=== PATIENT | female | born 1955 | race Caucasian/White ===

== ENCOUNTER 2019-06-07 16:10 | Inpatient (IN) | payer OTHER ==
--- NOTE | 2019-06-07 16:37 | ED ---
Respiratory - HPI Summary HPI Summary: Patient complains of dry cough 1 month, fever up 101 and shortness of breath with exertion 3 days. Diagnosed with pneumonia on 05/24, completed course of azithromycin with mild improvement in symptoms. Symptoms returned for past 5 days, worsening in past 3 days. Tested negative for Covid virus on 05/31. Patient has been isolated at home. Denies sore throat, ear pain, neck stiffness , headache, CP, and/V/D, abdominal pain, change in urine, change in BM. Medical history is asthma, HTN, HDL. Patient has been using her inhaler which makes her cough, so not providing relief. Nonsmoker. - History of Current Complaint Chief Complaint: EDShortnessOfBreath Stated Complaint: SOB/COUGH/ FEVER PER PT Time Seen by Provider: 06/07/19 16:13 Hx Obtained From: Patient Onset/Duration: Gradual Onset, Lasting Days Timing: Constant Current Severity: None Pain Intensity: 0 Character: Cough (Nonproductive), Dyspnea on Exertion Sputum Amount: None Aggravating Factor(s): Exertion Alleviating Factor(s): Nothing - Allergy/Home Medications Allergies/Adverse Reactions: Allergies Allergy/AdvReac Type Severity Reaction Status Date / Time No Known Allergies Allergy Verified 06/07/19 17:13 Home Medications: Home Medications Albuterol HFA INHALER* [Proair Hfa Inhaler*] 1 puff PO DAILY PRN 08/20/12 [ History Confirmed 06/07/19] Atorvastatin* [Lipitor 10 MG*] 10 mg PO DAILY 06/07/19 [History Confirmed ] Chlorthalidone TAB* [Hygroton TAB*] 12.5 mg PO DAILY 06/07/19 [History Confirmed 06/07/19] Enalapril(NF) [Enalapril (NF)] 20 mg PO DAILY 06/07/19 [History Confirmed ] Estradiol [Yuvafem] 10 mcg VG WEEKLY 06/07/19 [History Confirmed 06/07/19] Montelukast Sodium 10 mg PO DAILY 06/07/19 [History Confirmed 06/07/19] PMH/Surg Hx/FS Hx/Imm Hx Endocrine/Hematology History: Denies: Hx Anticoagulant Therapy Cardiovascular History: Denies: Hx Pacemaker/ICD Respiratory History: Denies: Hx Chronic Obstructive Pulmonary Disease (COPD) History: Denies: Hx Dialysis Sensory History: Denies: Hx Eye Prosthesis Opthamlomology History: Denies: Hx Legally Blind EENT History: Denies: Hx Deafness Neurological History: Denies: Hx Dementia - Cancer History Hx Chemotherapy: No Hx Radiation Therapy: No Infectious Disease History: No Infectious Disease History: Denies: Traveled Outside the [place] in Last 30 Days - Family History Known Family History: Positive: Non-Contributory - Social History Alcohol Use: Occasionally Hx Substance Use: No Hx Tobacco Use: No Review of Systems Positive: Fever Eyes: Negative Cardiovascular: Negative Positive: Shortness Of Breath, Cough Gastrointestinal: Negative Genitourinary: Negative Musculoskeletal: Negative Skin: Negative Neurological/Mental Status: Negative Psychological: Normal All Other Systems Reviewed And Are Negative: Yes Physical Exam Triage Information Reviewed: Yes Vital Signs On Initial Exam: Initial Vitals Temp Pulse Resp BP Pulse Ox 98.2 F 100 20 133/65 87 06/07/19 16:20 06/07/19 16:20 06/07/19 16:20 06/07/19 16:20 06/07/19 16:20 Vital Signs Reviewed: Yes Appearance: Positive: Well-Appearing Skin: Positive: Warm Head/Face: Positive: Normal Head/Face Inspection Eyes: Positive: Normal Neck: Positive: Supple Respiratory/Lung Sounds: Positive: Decreased Breath Sounds Cardiovascular: Positive: Normal Abdomen Description: Positive: Nontender Musculoskeletal: Positive: Normal Neurological: Positive: Normal Psychiatric: Positive: Normal AVPU Assessment: Alert - [place] Coma Scale Best Eye Response: 4 - Spontaneous Best Motor Response: 6 - Obeys Commands Best Verbal Response: 5 - Oriented Coma Scale Total: 15 Procedures - Sedation Patient Received Moderate/Deep Sedation with Procedure: No Diagnostics - Vital Signs Vital Signs Temp Pulse Resp BP Pulse Ox 06/07/19 16:20 98.2 F 100 20 133/65 87 - Laboratory Result Diagrams: 06/08/19 04:48 06/08/19 04:48 Lab Statement: Any lab studies that have been ordered have been reviewed, and results considered in the medical decision making process. Disposition - Course Course Of Treatment: Patient complains of dry cough 1 month, fever up 101 and shortness of breath with exertion 3 days. Diagnosed with pneumonia on 05/24, completed course of azithromycin with mild improvement in symptoms. Symptoms returned for past 5 days, worsening in past 3 days. Tested negative for Covid virus on 05/31. Patient has been isolated at home. Denies sore throat, ear pain , neck stiffness, headache, CP, and/V/D, abdominal pain, change in urine, change in BM. Medical history is asthma, HTN, HDL. Patient has been using her inhaler which makes her cough, so not providing relief. Nonsmoker. Patient 87 % O2 sat on room air. Mildly tachycardic. Placed on 3 L O2. Vital signs otherwise within normal limits. CBC 11.8. CRP 95. Labs otherwise within normal limits. Chest x-ray positive for worsening pneumonia. She drops to 88, 89% whenever taken off oxygen. EKG sinus rhythm, heart rate of 86, normal P axis. - Diagnoses Provider Diagnoses: Pneumonia, Hypoxia Discharge ED - Sign-Out/Discharge Documenting (check all that apply): Patient Departure - Discharge Plan Condition: Stable Disposition: ADMITTED TO [facility] - Billing Disposition and Condition Condition: STABLE Disposition: Admitted to [facility] - Attestation Statements Provider Attestation: I was available for consultation for this patient. I did not evaluate the patient or participate in any medical decision making or disposition decisions unless I am specifically named in the chart as having consulted on the patient. If I have consulted on the patient, please see my own ED note on the patient encounter. Alex Colón MD
[2019-06-07 17:26] LABS: ABS Eosinophils 0.2 10^3/ul (0-0.6); ABS Lymphocytes 0.9 10^3/ul (1.0-4.8); ABS Monocytes 1.1 10^3/ul (0-0.8); ABS Neutrophils 9.4 10^3/ul (1.5-7.7); Eosinophil % 1.9 %; Hematocrit 37 % (35-47); Hemoglobin 12.5 g/dL (12.0-16.0); Mean Corpuscular HGB Conc 34 g/dL (31-36); Mean Corpuscular Hemoglobin 29 pg (27-31); Mean Corpuscular Volume 85 fL (80-97); Mean Platelet Volume 7.7 fL (7.4-10.4); Platelet Count 382 10^3/uL (150-450); Red Blood Count 4.37 10^6 /uL (3.70-4.87); Red Cell Distribution Width 13 % (10-15); White Blood Count 11.8 10^3/uL (3.5-10.8)
[2019-06-07 17:42] LABS: Albumin 3.8 g/dL (3.2-5.2); Albumin/Globulin Ratio 1.1 (1-3); BUN/Creatinine Ratio 16.9 (8-20); C Reactive Protein 95.97 mg/L (<8.01); Calcium 9.3 mg/dL (8.6-10.3); EGFR African American 91.9 (>60); Globulin 3.4 g/dL (2-4); Potassium 3.6 mmol/L (3.5-5.0); Total Bilirubin 0.4 mg/dL (0.2-1.0); Total Protein 7.2 g/dL (6.4-8.9)
[2019-06-07] MEDS ORDERED: cefTRIAXone(*) 1 GM in NS 0.9% 50 ML* 50 ML IVPB ONE (17:42)
[2019-06-07 17:43] LABS: Troponin I 0.01 ng/mL (<0.03)
[2019-06-07] MEDS ORDERED: NS 0.9% 1000 ML** 1,000 ML IV ONE (17:45)
[2019-06-07 17:56] LABS: Influenza A Molecular Negative (Negative); Influenza B Molecular Negative (Negative)
--- OUTSIDE RECORDS SUMMARY | 2019-06-07 18:22 | XMS REPORT | Continuity of Care Document ---
:1955 External Reference #:[id number] Author Name [facility] (transmitted by agent of provider Boubacar Osorio) Address [address] [place] [address] Care Team Providers Name Role Phone Zee Esquivel MD - Internal Care Team Information Respiratory Therapy Director [phone] Medicine Lizzeth Conn MD - Internal Care Team Information Respiratory Therapy Director [phone] Medicine Problems Active Problems Provider Date Benign essential hypertension Lizzeth Conn M.D. Onset: 02/23/2010 Hyperlipidemia Lizzeth Conn M.D. Onset: 01/14/2011 Chondromalacia of patella Marlo Del Rio M.D. Onset: 01/17/2015 Social History Type Date Description Comments Sex Unknown Tobacco Use Start: Unknown Never Smoked Cigarettes ETOH Use Currently consumes alcohol 2/week Tobacco Use Start: Unknown Patient has never smoked Smoking Status Reviewed: 05/25/19 Patient has never smoked Exercise Type/Frequency Exercises regularly Allergies, Adverse Reactions, Alerts Active Allergies Reaction Severity Comments Date NKDA 11/21/2009 Seasonal 09/07/2013 Medications Active Medications SIG Qnty Indications Ordering Date Provider Azithromycin take 2 tabs day 1pwes Zhong 05/25/2019 1gm Packet one then 1 zoltan Ashraf M.D. daily until pack is gone Estradiol insert 1 tablet 24tabs Efrain Mathew, 11/21/2018 10mcg Tablets vaginally twice MD weekly Chlorthalidone Take 1/2 Tablet 90tabs Lizzeth 10/01/2017 25mg By Mouth Every Celine Conn Tablets Day Atorvastatin Calcium Take 1 Tablet By 90tabs E78.2 Lizzeth 04/04/2016 10mg Mouth Every Day Cotton, M.D. Tablets Montelukast Sodium Take 1 Tablet By 90tabs Lizzeth 12/22/2011 10mg Mouth Once Daily Cotton, M.D. Tablets Proair HFA inhale 1 to 2 3units Lizzeth 07/16/2009 108(90Base) puffs every 4 Cotton, M.D. mcg/Act Aerosol hours as needed Enalapril Maleate Take 1 Tablet By 90tabs Lizzeth 07/16/2009 20mg Mouth Daily Cotton, M.D. Tablets Medications Administered in Office Medication SIG Qnty Indications Ordering Provider Date Depomedrol 80MG Marlo Del Rio M.D. 09/05/2014 Injection Immunizations CPT Code Status Date Vaccine Lot # [id number] Given 01/03/2019 Influenza Virus Vaccine, Quadrivalent, Split, Preservative Free 41190 Given 12/06/2017 Fluzone High Dose 17499 Given 10/23/2016 Influenza Virus Vaccine, Quadrivalent, Split, Preservative Free 48402 Given 08/17/2010 Tdap - Tetanus/Diptheria/Acellular Pertussis [id number] Vital Signs Date Vital Result Comment 05/25/2019 1:29pm Height 63.5 inches 5'3.50" Weight 159.38 lb Heart Rate 104 /min BP Systolic Sitting 136 mmHg BP Diastolic Sitting 78 mmHg Body Temperature 98.5 F O2 % BldC Oximetry 92 % BMI (Body Mass Index) 27.8 kg/m2 04/15/2019 1:00pm Height 63.5 inches 5'3.50" Weight 163.00 lb Heart Rate 81 /min BP Systolic 125 mmHg BP Diastolic 75 mmHg O2 % BldC Oximetry 98 % BMI (Body Mass Index) 28.4 kg/m2 Results Test Acquired Date Facility Test Result H/L Range Note Laboratory test 06/01/2019 [facility] Covid19, PCR <pending> finding [address] [place] [address] [phone] Cytology 04/15/2019 [facility] Cytology SEE RESULT [address] [place] [address] [phone] PDFReport SEE IMAGE Laboratory test 01/07/2019 [facility] Hemoglobin A1c 5.4 % Normal 4.0-5.[address] (Glyco HGB) [place] [address] [phone] 1 SEE RESULT BELOW Name: ODALYS CAMARGO : [address]: Efrain Mathew MD Acct: [id number] Unit: [id number] AGE: 64 Location: [facility] Re04/15/19 SEX: F Status: REG REF SPEC: [id number] LUIS: 04/15/19-[address]: Efrain Mathew MD REQ: [id number] RECD: 04/15/19 STATUS: SOUT _ ORDERED: TP IMAGE ANALYS, HPV/Thin Prep, HPV 16/18 GENE COMMENTS: [id number] FINAL DIAGNOSIS Negative for Intraepithelial lesion or Malignancy HPV RESULTS Date Time Test Result Flag (u) Normal Range 04/15/197 HPV ARGELIA RFLX GE Negative Negative The high-risk HPV types detected by the assay include: 16, 18, 31, 33, 35, 39, 45, 51, 52, 56, 58, 59, 66, and 68. SPECIMEN(S) RECEIVED A. Ectocervical/Endocervical CYTOLOGY ADEQUACY Specimen Adequacy: Satisfactory of evaluation Transformation zone component identified CONTINUED ON NEXT PAGE DEPARTMENT OF PATHOLOGY, [address] [place] [id number] Williams Sawant M.D. Director [facility] # [id number] CYTOLOGY PATIENT INFORMATION Patient Information: HPV: High risk HPV RNA testing regardless of pap results. Actual Specimen Date: 04/15/19 Last Menstrual Date: 03/17/12 ?: N Post Menopausal?: Y Hysterectomy?: N Signed by and Reported on: BRANDO Cm(ASCP) [id number] This Pap test was evaluated with the assistance of the [employer] Test Imaging System. Due to cytologic findings at the urology teacher microscope, comprehensive manual rescreening by a Death Surveys Coder may be required. The Pap Smear is a screening test designed to aid in the detection of premalignant and malignant conditions of the uterine cervix. It is not a diagnostic procedure and should not be used as the sole means of detecting cervical cancer. Both false- positive and false- negative reports do occur. Depending on your risk status, a Pap smear should be obtained and evaluated every 1-3 years. END OF REPORT DEPARTMENT OF PATHOLOGY, [address] [place] [id number] Williams Sawant M.D. Director [facility] # [id number] 2 Therapeutic target for the treatment of diabetes mellitus patients is <7% HBA1C, and in selective patients <6.0%. Please refer to [place] [employer] diabetic care guidelines for further information. Procedures Date Code Description Status 01/11/2019 [id number] Mammogram Completed 12/29/2017 [id number] Mammogram Completed 12/12/2016 [id number] Mammogram Completed 12/01/2015 [id number] Mammogram Completed 10/13/2014 [id number] Mammogram Completed 10/12/2013 [id number] Mammogram Completed 10/08/2012 [id number] Mammogram Completed 08/21/2012 [id number] Colonoscopy Completed 10/07/2011 [id number] Mammogram Completed 09/26/2010 [id number] Mammogram Completed 08/23/2009 [id number] Mammogram Completed 08/16/2008 [id number] Mammogram Completed 08/21/2007 [id number] Colonoscopy Completed 01/08/2005 [id number] Mammogram Completed Medical Devices Description No Information Available Encounters Type Date Location Provider Dx Diagnosis Office Visit 01/12/2019 [facility] Internal Lizzeth Conn I10 Essential ( primary) 2:20p Medicine - Da Berger hypertension R73.03 Prediabetes Assessments Date Code Description Provider 05/25/2019 J20.9 Acute bronchitis, unspecified Elvis Ashraf M.D. 04/15/2019 Z01.419 Encounter for gynecological examination Efrain Mathew MD (general) (routine) without abnormal findings 04/15/2019 N83.202 Unspecified ovarian cyst, left side Efrain Mathew MD 04/15/2019 Z11.51 Encounter for screening for human Efrain Mathew MD papillomavirus (HPV) 01/12/2019 I10 Essential (primary) hypertension Lizzeth Conn M.D. 01/12/2019 R73.03 Prediabetes Lizzeth Conn M.D. Plan of Treatment Future Appointment(s):07/16/2019 1:20 pm - Lizzeth Conn M.D. at [facility] Internal Medicine - [facility]05/25/2019 - Elvis Ashraf M.D.J20.9 Acute bronchitis, unspecifiedComments:Lingering ? viral cough sx over the past month with low grade fever 2 days ago. (+) bibasilar raleson exam, but lungs otherwise clear. (+) hx asthma, but no sx in general. Continue cough Rx as needed and use Albuterol inhaler for any wheezing/winded sx. Check CXR. Functional Status Description No Information Available Mental Status Description No Information Available Referrals Description No Information Available
--- OUTSIDE RECORDS SUMMARY | 2019-06-07 18:22 | XMS REPORT | Continuity of Care Document ---
:1955 External Reference #:[id number] Author Name Efrain Mathew MD (transmitted by agent of provider Anitha Hirsch) Address [address] [place] [id number] Care Team Providers Name Role Phone Zee Esquivel MD - Internal Care Team Information Atmospheric Drier Tender [phone] Medicine Lizzeth Conn MD - Internal Care Team Information Atmospheric Drier Tender Medicine Problems Active Problems Provider Date Benign essential hypertension Lizzeth Conn M.D. Onset: 02/23/2010 Hyperlipidemia Lizzeth Conn M.D. Onset: 01/14/2011 Chondromalacia of patella Marlo Del Rio M.D. Onset: 01/17/2015 Social History Type Date Description Comments Sex Unknown Tobacco Use Start: Unknown Never Smoked Cigarettes ETOH Use Currently consumes alcohol 2/week Tobacco Use Start: Unknown Patient has never smoked Smoking Status Reviewed: 04/15/19 Patient has never smoked Exercise Type/Frequency Exercises regularly Allergies, Adverse Reactions, Alerts Active Allergies Reaction Severity Comments Date NKDA 11/21/2009 Seasonal 09/07/2013 Medications Active Medications SIG Qnty Indications Ordering Date Provider Estradiol insert 1 tablet 24tabs Efrain Mathew, 11/21/2018 10mcg Tablets vaginally twice MD weekly Chlorthalidone Take 1/2 Tablet 90tabs Lizzeth 10/01/2017 25mg By Mouth Every Keyonna ConnDParas Tablets Day Atorvastatin Calcium Take 1 Tablet By 90tabs E78.2 Lizzeth 04/04/2016 10mg Mouth Every Day Fabien MParasDParas Tablets Montelukast Sodium Take 1 Tablet By 90tabs Lizzeth 12/22/2011 10mg Mouth Once Daily Celine Conn Tablets Proair HFA inhale 1 to 2 3units Lizzeth 07/16/2009 108(90Base) puffs every 4 Cotton, M.D. mcg/Act Aerosol hours as needed Enalapril Maleate Take 1 Tablet By 90tabs Lizzeth 07/16/2009 20mg Mouth Daily Cotton, M.D. Tablets Medications Administered in Office Medication SIG Qnty Indications Ordering Provider Date Depomedrol 80MG Marlo Del Rio M.D. 09/05/2014 Injection Immunizations CPT Code Status Date Vaccine Lot # [id number] Given 01/03/2019 Influenza Virus Vaccine, Quadrivalent, Split, Preservative Free 31491 Given 12/06/2017 Fluzone High Dose 40057 Given 10/23/2016 Influenza Virus Vaccine, Quadrivalent, Split, Preservative Free 36195 Given 08/17/2010 Tdap - Tetanus/Diptheria/Acellular Pertussis [id number] Vital Signs Date Vital Result Comment 04/15/2019 1:00pm Height 63.5 inches 5'3.50" Weight 163.00 lb Heart Rate 81 /min BP Systolic 125 mmHg BP Diastolic 75 mmHg O2 % BldC Oximetry 98 % BMI (Body Mass Index) 28.4 kg/m2 01/12/2019 2:33pm Height 63.5 inches 5'3.50" Weight 159.00 lb Heart Rate 77 /min BP Systolic 131 mmHg BP Diastolic 74 mmHg O2 % BldC Oximetry 100 % BMI (Body Mass Index) 27.7 kg/m2 Results Test Acquired Date Facility Test Result H/L Range Note Laboratory test 04/15/2019 [facility] Cytology <pending> finding [address] [place] [address] [phone] Laboratory test 01/07/2019 [facility] Hemoglobin A1c 5.4 % Normal 4.0-5.6 1 finding [address] [facility] (Glyco HGB) [place] [address] [phone] 1 Therapeutic target for the treatment of diabetes mellitus patients is <7% HBA1C, and in selective patients <6.0%. Please refer to [place] [employer] diabetic care guidelines for further information. Procedures Date Code Description Status 01/11/2019 [id number] Mammogram Completed 12/29/2017 [id number] Mammogram Completed 12/12/2016 [id number] Mammogram Completed 12/01/2015 [id number] Mammogram Completed 10/13/2014 [id number] Mammogram Completed 10/12/2013 [id number] Mammogram Completed 10/08/2012 [id number] Mammogram Completed 08/21/2012 [id number] Colonoscopy Completed 10/07/2011 [id number] Mammogram Completed 09/26/2010 [id number] Mammogram Completed 08/23/2009 [id number] Mammogram Completed 08/16/2008 [id number] Mammogram Completed 08/21/2007 [id number] Colonoscopy Completed 01/08/2005 [id number] Mammogram Completed Medical Devices Description No Information Available Encounters Type Date Location Provider Dx Diagnosis Office Visit 01/12/2019 [facility] Internal Lizzeth Conn I10 Essential ( primary) 2:20p Medicine - Da Berger hypertension R73.03 Prediabetes Assessments Date Code Description Provider 04/15/2019 Z01.419 Encounter for gynecological examination Efrain Mathew MD (general) (routine) without abnormal findings 01/12/2019 I10 Essential (primary) hypertension Lizzeth Conn M.D. 01/12/2019 R73.03 Prediabetes Lizzeth Conn M.D. Plan of Treatment Future Appointment(s):07/16/2019 1:20 pm - Lizzeth Conn M.D. at [facility] Internal Medicine - [facility]04/15/2019 - Efrain Mathew MDZ01.419 Encounter for gynecological examination (general) (routine) without abnormal findingsFollow up :Please call our office if you do not receive the Pap result in the mail within 1 week. Plan Annual exam one year Functional Status Description No Information Available Mental Status Description No Information Available Referrals Description No Information Available
[2019-06-07] MEDS ORDERED: NS 0.9% 1000 ML** 1,000 ML IV SCH (18:45)
[2019-06-07] MEDS: Mometasone/Formoter 100/5 MDI INH SCH (20:05)
--- NOTE | 2019-06-07 20:48 | HP ---
CC: Dr. Conn * HISTORY AND PHYSICAL: DATE OF ADMISSION: 06/07/19 PROVIDER: Rustam Barnes NP. PRIMARY CARE PHYSICIAN: Dr. Conn. ATTENDING PHYSICIAN WHILE IN THE HOSPITAL: Dr. Velvet Gibson * (dictated by Rustam Barnes NP). CHIEF COMPLAINT: 1. Shortness of breath. 2. Cough. 3. Fever. HISTORY OF PRESENT ILLNESS: Ms. Camargo is a 64-year-old female with past medical history significant for hypertension, hyperlipidemia and asthma, who presented to the emergency room with complaints of fever, cough, and worsening shortness of breath. The patient reports that she was diagnosed with pneumonia on 05/25/19. At that time, she was started on azithromycin. She completed a 5- day course of azithromycin ending on 05/31/19. The patient did report that she felt slightly better after completing her course of antibiotic. She reports that her cough was much less. She does report that since last , she has been running a low- grade fever of 99.9. She does report that this morning at approximately 2 a.m., she had a fever of 101.0. Since last , she reports she has had decreased energy, increased shortness of breath. The patient does report that she was tested for COVID on 06/01/19 and at that time that test was negative. She reports that she has a nonproductive cough. She denies any chest pain. She denies any edema. Denies calf pain or tenderness. She does report decreased appetite. She does report cough, no hemoptysis. She does report progressively worsening shortness of breath. The patient reports that currently she is unable to do physical activity due to the worsening shortness of breath with ambulation. No nausea, vomiting, diarrhea or abdominal pain. Denies any gross hematuria, dysuria, focal weakness, sensory loss, visual complaints, arthralgias, myalgias, rashes, lesions, open sores, psychosis or anxiety. The patient does report that she traveled to [place] on vacation from to 05/12/19. She does report that prior to her vacation, she had a mild cough, but was able to carry out regular activities while on vacation. While in the emergency room, the patient had routine lab work drawn. She was found to have leukocytosis with a white count of 11.8 and a chest x-ray that showed worsening pneumonia. Due to these findings, Hospital Medicine was asked to see and evaluate her for admission. PAST MEDICAL HISTORY: Significant for: 1. Hypertension. 2. Hyperlipidemia. 3. Asthma. MEDICATIONS: Home medications include: 1. Enalapril 20 mg p.o. daily. 2. Estradiol 10 mcg vaginally weekly. 3. Singulair 10 mg p.o. daily. 4. Chlorthalidone 25 mg p.o. daily. 5. Atorvastatin 10 mg p.o. daily. 6. Albuterol HFA inhaler 1 puff p.o. daily p.r.n. shortness of breath. ALLERGIES: No known drug allergies. FAMILY HISTORY: Mother with a history of coronary artery disease, HI and valve placement. Mother with diabetes and mother with cervical, thyroid, and history of leukemia. Father with a history of COPD. SOCIAL HISTORY: The patient denies any smoking, does report occasional alcohol use. No illicit drug use. Surrogate decision maker in the event she is unable to make her own decisions is her . She is a full code. REVIEW OF SYSTEMS: A 14-point review of systems was completed. All pertinent positives were mentioned in the HPI, otherwise were negative. PHYSICAL EXAMINATION GENERAL: At this time, Ms. Camargo is alert and oriented. Resting on the stretcher in the emergency room. She is in no acute distress. VITAL SIGNS: Temperature 98.2, Blood pressure 152/82, heart rate 88, respirations are 20, O2 saturation 100% on 2 L nasal cannula. HEENT: Head is atraumatic, normocephalic. Eyes, EOMs are intact. Sclerae anicteric and not pale. Oral mucosa is moist. NECK: Supple. LUNGS: Clear to auscultation bilaterally upper lobes. No wheezes. She does have some rhonchi in the right base, with bilat diminished breath sounds in the bases. CARDIAC: S1, S2. Regular rate and rhythm. No murmurs, rubs, or gallops. ABDOMEN: Soft and nontender. Bowel sounds are present x4. EXTREMITIES: She is able to move all 4 extremities. There is no clubbing or cyanosis. NEUROLOGIC: She is awake, alert, oriented x3. Speech is clear. Thought process is intact. SKIN: Intact. DIAGNOSTIC STUDIES/LAB DATA: WBCs are 11.8, RBCs 4.37, hemoglobin 12.5, hematocrit 37, platelet count 382. Sodium 134, potassium 3.6, chloride 96, carbon dioxide 30, anion gap is 8, BUN was 13, creatinine 0.77, glucose 120, lactic acid 1.0, calcium 9.3. Total bili 0.40, AST was 13, ALT was 8, alkaline phosphatase was 71. C-reactive protein was 95.97. Flu A and B are negative. COVID is pending. Urinalysis is pending. She had a chest x-ray. Radiologist impression: Worsening patchy bilateral airspace opacification. She had an electrocardiogram. It showed sinus rhythm at a rate of 86. ASSESSMENT AND PLAN: Ms. Camargo is a 64-year-old female with a past medical history significant for hypertension, hyperlipidemia and asthma, who presented to the emergency room with complaints of shortness of breath, fever and cough and found to have worsening bilateral pneumonia. She will be admitted under observation for: 1. Shortness of breath, fever, acute hypoxic respiratory failure. I suspect this is related to her underlying worsening pneumonia. The patient was recently treated with azithromycin for pneumonia, which she completed on . The patient did receive ceftriaxone in the emergency room. I will place her on doxycycline, ceftriaxone. She can have oxygen titration as needed to maintain O2 saturation greater than 92%. I will continue her albuterol inhaler and add Dulera inhaler. We will send urine for Legionella and Strep pneumonia. Blood cultures are currently pending. I will add a incentive spirometer. The patient has a COVID-19 swab that is currently pending. She did have a negative COVID test on 06/01/19. Given the patient's recent travel to [place] in April from 04/27/19 to 05/12/19, I think it is prudent to repeat this exam to ensure that the first test was not a false negative. 2. Hypertension. She can continue her chlorthalidone and enalapril as previously prescribed. 3. Hyperlipidemia. She can continue on atorvastatin as previously prescribed. 4. FEN: She can have a regular diet. 5. Code status: She is a full code. 6. DVT prophylaxis: I will place her on Lovenox subcu. TIME SPENT: Time spent on this admission was 60 minutes, greater than half that time was spent at the bedside reviewing events leading thus far to her hospitalization, performing physical exam, and reviewing my plan of care. I have discussed with my attending Dr. Velvet Gibson, she is in agreement with my plan. RUSTAM BARNES, HOOKER OFF [id number]/CPS #: [id number] ESTEBAN
[2019-06-07] MEDS ORDERED: Albuterol HFA INHALER* 8 gm MDI INH SCH (21:00)
[2019-06-07] MEDS: Enoxaparin(*) 40 MG/0.4 ML SYR SUBCUT SCH (22:27)
[2019-06-07] MEDS: Montelukast Sodium TAB* 10 MG PO SCH (22:27)
[2019-06-07] MEDS: Atorvastatin* 10 MG TAB PO SCH (22:27)
[2019-06-07] MEDS: DOXYcycline IV* 100 MG in NS 0.9% 250 ML* 250 ML IVPB SCH (22:27)
[2019-06-08] MEDS: Benzonatate CAP* 100 MG PO PRN ×3 (00:02→20:31)
[2019-06-08 00:15] LABS: Urine Appearance Clear; Urine Bilirubin Negative (Negative); Urine Blood Negative (Negative); Urine Color Yellow; Urine Glucose Negative (Negative); Urine Ketones Negative (Negative); Urine Nitrite Negative (Negative); Urine Protein Negative (Negative); Urine Specific Gravity 1.017 (1.010-1.030); Urine Urobilinogen Negative (Negative)
[2019-06-08 05:34] LABS: ABS Lymphocytes 0.7 10^3/ul (1.0-4.8); ABS Neutrophils 13.4 10^3/ul (1.5-7.7); Eosinophil % 0.3 %; Hematocrit 30 % (35-47); Hemoglobin 10.3 g/dL (12.0-16.0); Lymphocyte % 4.4 %; Mean Corpuscular HGB Conc 34 g/dL (31-36); Mean Corpuscular Hemoglobin 29 pg (27-31); Mean Corpuscular Volume 84 fL (80-97); Platelet Count 299 10^3/uL (150-450); Red Blood Count 3.57 10^6 /uL (3.70-4.87); Red Cell Distribution Width 13 % (10-15); White Blood Count 15.1 10^3/uL (3.5-10.8)
[2019-06-08 05:52] LABS: BUN/Creatinine Ratio 13.9 (8-20); Calcium 7.9 mg/dL (8.6-10.3); EGFR African American 99.3 (>60); EGFR Non-African American 82.1 (>60); Potassium 2.9 mmol/L (3.5-5.0)
[2019-06-08] MEDS: DOXYcycline IV* 100 MG in NS 0.9% 250 ML* 250 ML IVPB SCH (07:50)
--- NOTE | 2019-06-08 08:44 | PN ---
Subjective Date of Service: 06/08/19 Interval History: Tmax 99.6 Initially on 6.5L oxymask then 10L. dry cough no improvement with inhalers. denies chest pain, abdominal pain, dysuria, increased frequency. Objective Active Medications: Acetaminophen (Tylenol Tab*) 650 mg PO Q4H PRN PRN Reason: MILD PAIN or TEMP > 100.4 Albuterol (Ventolin Hfa Inhaler*) 2 puff INH QID PRN PRN Reason: SHORTNESS OF BREATH Atorvastatin Calcium (Lipitor*) 10 mg PO 2100 [facility] Last Admin: 06/07/19 22:27 Dose: 10 mg Benzonatate (Tessalon Cap*) 100 mg PO BID PRN PRN Reason: COUGH Last Admin: 06/08/19 07:52 Dose: 100 mg Chlorthalidone (Hygroton Tab*) 12.5 mg PO DAILY [facility] Enalapril Maleate (Vasotec Tab*) 20 mg PO DAILY [facility] Enoxaparin Sodium (Lovenox(*)) 40 mg SUBCUT Q24H [facility] Last Admin: 06/07/19 22:27 Dose: Not Given Doxycycline Hyclate 100 mg/ (Sodium Chloride) 250 mls @ 250 mls/hr IVPB Q12H [facility] Last Admin: 06/08/19 07:50 Dose: 250 mls/hr Ceftriaxone Sodium 1 gm/ (Sodium Chloride) 50 mls @ 100 mls/hr IVPB Q24H [facility] Mometasone Furoate/Formoterol Fumar (Dulera 100/5 Mdi*) 2 puff INH BID [facility] Last Admin: 06/07/19 20:05 Dose: Not Given Montelukast Sodium (Singulair Tab*) 10 mg PO 2100 [facility] Last Admin: 06/07/19 22:27 Dose: 10 mg Vital Signs - 8 hr 06/08/19 06/08/19 06/08/19 03:42 03:50 06:41 Temperature 98.3 F 99.6 F Pulse Rate 107 90 Respiratory 20 36 Rate Blood Pressure 142/56 118/54 (mmHg) O2 Sat by Pulse 90 93 Oximetry 06/08/19 07:55 Temperature 98.1 F Pulse Rate 86 Respiratory 28 Rate Blood Pressure 116/50 (mmHg) O2 Sat by Pulse 90 Oximetry Oxygen Devices in Use Now: OxyMask Appearance: Ill appearing Eyes: No Scleral Icterus Ears/Nose/Mouth/Throat: NL Teeth, Lips, Gums Respiratory: - - diffuse rhonchi, no rales or wheezing. Cardiovascular: NL Sounds; No Murmurs; No JVD, No Edema Abdominal: NL Sounds; No Tenderness; No Distention, No Hepatosplenomegaly Skin: No Rash or Ulcers Neurological: Alert and Oriented x 3 Nutrition: Taking PO's Result Diagrams: 06/08/19 04:48 06/08/19 04:48 Additional Lab and Data: Laboratory Results - last 24 hr 06/07/19 06/07/19 06/07/19 17:00 17:00 17:00 WBC 11.8 H RBC 4.37 Hgb 12.5 Hct 37 MCV 85 MCH 29 MCHC 34 RDW 13 Plt Count 382 MPV 7.7 Neut % (Auto) 80.3 Lymph % (Auto) 8.0 [place] % (Auto) 9.7 Eos % (Auto) 1.9 Baso % (Auto) 0.1 Absolute Neuts (auto) 9.4 H Absolute Lymphs (auto) 0.9 L Absolute Monos (auto) 1.1 H Absolute Eos (auto) 0.2 Absolute Basos (auto) 0.0 Absolute Nucleated RBC 0.0 Nucleated RBC % 0.0 Sodium 134 L Potassium 3.6 Chloride 96 L Carbon Dioxide 30 Anion Gap 8 BUN 13 Creatinine 0.77 Est GFR ( Amer) 91.9 Est GFR (Non-Af Amer) 76.0 BUN/Creatinine Ratio 16.9 Glucose 120 H Lactic Acid 1.0 Calcium 9.3 Magnesium Total Bilirubin 0.40 AST 13 ALT 8 Alkaline Phosphatase 71 Troponin I 0.01 C-Reactive Protein 95.97 H B-Natriuretic Peptide Total Protein 7.2 Albumin 3.8 Globulin 3.4 Albumin/Globulin Ratio 1.1 Urine Color Urine Appearance Urine pH Ur Specific [place] Urine Protein Urine Ketones Urine Blood Urine Nitrate Urine Bilirubin Urine Urobilinogen Ur Leukocyte Esterase Urine Glucose Influenza A (Rapid) Influenza B (Rapid) 06/07/19 06/07/19 06/07/19 17:32 19:30 22:28 WBC RBC Hgb Hct MCV MCH MCHC RDW Plt Count MPV Neut % (Auto) Lymph % (Auto) [place] % (Auto) Eos % (Auto) Baso % (Auto) Absolute Neuts (auto) Absolute Lymphs (auto) Absolute Monos (auto) Absolute Eos (auto) Absolute Basos (auto) Absolute Nucleated RBC Nucleated RBC % Sodium Potassium Chloride Carbon Dioxide Anion Gap BUN Creatinine Est GFR ( Amer) Est GFR (Non-Af Amer) BUN/Creatinine Ratio Glucose Lactic Acid Calcium Magnesium Total Bilirubin AST ALT Alkaline Phosphatase Troponin I 0.01 0.01 C-Reactive Protein B-Natriuretic Peptide Total Protein Albumin Globulin Albumin/Globulin Ratio Urine Color Urine Appearance Urine pH Ur Specific [place] Urine Protein Urine Ketones Urine Blood Urine Nitrate Urine Bilirubin Urine Urobilinogen Ur Leukocyte Esterase Urine Glucose Influenza A (Rapid) Negative Influenza B (Rapid) Negative 06/08/19 06/08/19 06/08/19 00:00 04:48 04:48 WBC 15.1 H RBC 3.57 L Hgb 10.3 L Hct 30 L MCV 84 MCH 29 MCHC 34 RDW 13 Plt Count 299 MPV 8.0 Neut % (Auto) 88.9 Lymph % (Auto) 4.4 [place] % (Auto) 6.4 Eos % (Auto) 0.3 Baso % (Auto) 0.0 Absolute Neuts (auto) 13.4 H Absolute Lymphs (auto) 0.7 L Absolute Monos (auto) 1.0 H Absolute Eos (auto) 0.0 Absolute Basos (auto) 0.0 Absolute Nucleated RBC 0.0 Nucleated RBC % 0.0 Sodium 133 L Potassium 2.9 L Chloride 100 L Carbon Dioxide 24 Anion Gap 9 BUN 10 Creatinine 0.72 Est GFR ( Amer) 99.3 Est GFR (Non-Af Amer) 82.1 BUN/Creatinine Ratio 13.9 Glucose 164 H Lactic Acid Calcium 7.9 L Magnesium 1.6 L Total Bilirubin AST ALT Alkaline Phosphatase Troponin I C-Reactive Protein B-Natriuretic Peptide Total Protein Albumin Globulin Albumin/Globulin Ratio Urine Color Yellow Urine Appearance Clear Urine pH 6.0 Ur Specific [place] 1.017 Urine Protein Negative Urine Ketones Negative Urine Blood Negative Urine Nitrate Negative Urine Bilirubin Negative Urine Urobilinogen Negative Ur Leukocyte Esterase Negative Urine Glucose Negative Influenza A (Rapid) Influenza B (Rapid) 06/08/19 04:48 WBC RBC Hgb Hct MCV MCH MCHC RDW Plt Count MPV Neut % (Auto) Lymph % (Auto) [place] % (Auto) Eos % (Auto) Baso % (Auto) Absolute Neuts (auto) Absolute Lymphs (auto) Absolute Monos (auto) Absolute Eos (auto) Absolute Basos (auto) Absolute Nucleated RBC Nucleated RBC % Sodium Potassium Chloride Carbon Dioxide Anion Gap BUN Creatinine Est GFR ( Amer) Est GFR (Non-Af Amer) BUN/Creatinine Ratio Glucose Lactic Acid Calcium Magnesium Total Bilirubin AST ALT Alkaline Phosphatase Troponin I C-Reactive Protein B-Natriuretic Peptide 43 Total Protein Albumin Globulin Albumin/Globulin Ratio Urine Color Urine Appearance Urine pH Ur Specific [place] Urine Protein Urine Ketones Urine Blood Urine Nitrate Urine Bilirubin Urine Urobilinogen Ur Leukocyte Esterase Urine Glucose Influenza A (Rapid) Influenza B (Rapid) Microbiology and Other Data: Microbiology 06/07/19 00:00 Legionella Urinary Antigen - Final Urine Negative Legionella Antigen Streptococcus pneumoniae Ag Screen - Final Negative S. pneumo Antigen Assess/Plan/Problems-Billing Assessment: 64 yo female PMH HTN, HLd, asthma. Presents with SOB, fever, dry cough in setting of b/l interstital infiltrates on CXR 05/24, not improved on azithromycin x5 days. Initial Covid-19 negative (05/31), repeat pending. CXR worsening b/l infiltrates and oxygen requirements. Travel to [place] and [place] 04/27-05/12. - Patient Problems (1) Acute respiratory failure with hypoxia Current Visit: Yes Status: Acute Code(s): J96.01 - ACUTE RESPIRATORY FAILURE WITH HYPOXIA SNOMED Code(s): 19795439 Comment: CXR with worsening b/l inflitrates compared to 05/24. s/p azithromycin until 05/30. Currently doxy and CFTX. stop CFTX, start zozyn. MRSA nares swab and consider vancomycin. Initial outpatient COVID-19 from 05/31 was negative. Repeat from 06/06 in ED pending. Have high suspicion level. CT chest ordered noncontrast. She has been worsening since this AM and is now on 15L with poor sat's. Being tranferred to the ICU. Dr. Bee was given heads up this AM about my concerns. Will need airborne precautions if needs vapotherm. She is full code (I reconfirmed). strep and legionella urine antigens negative. BNP wnl, no hx of CHF or ECHO. euvolemic. (2) Sepsis Current Visit: Yes Status: Acute Comment: SIRS criteria: leukocytosis - worsening tachypneia/respiratory failure - worsening fever at home, Tmax here 99.6 tachychardia, HRmax 107 source: bilateral pneuomonia, possible of viral origin. COVID-19 rule out. f/u blood cultures sputum culture if turns productive. legenionella/strep pna urine antigens negative UA:negative (3) Asthma Current Visit: Yes Status: Acute Code(s): J45.909 - UNSPECIFIED ASTHMA, UNCOMPLICATED SNOMED Code(s): 222581436 Comment: continue inhalers not wheezing and not symptomatically better with her inhalers. Will hold off on steroids while COVID-19 has likelyhood. Status and Disposition: transferring to ICU for worsening hypoxic respiratory failure.
[2019-06-08] MEDS: Mometasone/Formoter 100/5 MDI INH SCH ×2 (08:47→20:03)
[2019-06-08] MEDS ORDERED: Enalapril TAB* 20 MG PO SCH (09:00)
[2019-06-08] MEDS ORDERED: Chlorthalidone TAB* 50 MG PO SCH (09:00)
[2019-06-08 09:12] LABS: Magnesium 1.6 mg/dL (1.9-2.7)
[2019-06-08] MEDS ORDERED: Magnesium Sulfate IV* 3 GM in NS 0.9% 100 ML* 100 ML IVPB ONE (09:13)
[2019-06-08] MEDS ORDERED: Potassium Chloride* LIQUID 20 MEQ/15 ML UDC PO ONE (09:13)
[2019-06-08] MEDS: Albuterol HFA INHALER* 8 gm MDI INH PRN (09:19)
[2019-06-08] MEDS ORDERED: Piperacillin/Tazobac ADVAN(*) 3.375 GM in NS 0.9% 100 ML* 100 ML IVPB ONE (11:39)
[2019-06-08] MEDS ORDERED: Zosyn per Pharmacy* NOTE FOLLOW UP SCH (12:00)
[2019-06-08] MEDS: Azithromycin 500 mg/250 ml NS 500 MG/250 ML BAG IVPB SCH (14:35)
--- NOTE | 2019-06-08 17:52 | PN ---
Date of Service: 06/08/19 Critical Care Services: 64 y/o female admitted to hospital yesterday with community-acquired pneumonia and was sent to ICU because of respiratory compromise. CXR shows bilateral infiltrates (patchy), most prominent at the lung bases. Patient oxygenating well on HFNC at 40 L/min with FIO2 = 100%. Rx pneumonia with PIP/TAZO and ceftriaxone. Vital Signs: Temp Pulse Resp BP SpO2 FiO2 100.1 F 84 21 120/64 98 100 Physical Exam: Gen:Comfortable Lungs:Crackles both bases Cardiac: reg rhythm Abdomen:Not distended Extremities: No cyanosis or edema Neuro: No asterixis Fluid Balance (Past 24 Hours): 06/08/19 06/09/19 06:59 06:59 Intake Total 1300 1075 Output Total 0 200 Balance 1300 875 Weight 157 lb 11.2 oz Intake: IV Fluids 1050 585 NS (0.9%) 585 IVPB 250 250 ABX - DOXYCYCLINE 250 Oral 0 240 Output: Urine 0 200 Labs: Laboratory Results - last 24 hr 06/07/19 06/07/19 06/07/19 17:32 19:30 22:28 WBC RBC Hgb Hct MCV MCH MCHC RDW Plt Count MPV Neut % (Auto) Lymph % (Auto) [place] % (Auto) Eos % (Auto) Baso % (Auto) Absolute Neuts (auto) Absolute Lymphs (auto) Absolute Monos (auto) Absolute Eos (auto) Absolute Basos (auto) Absolute Nucleated RBC Nucleated RBC % Sodium Potassium Chloride Carbon Dioxide Anion Gap BUN Creatinine Est GFR ( Amer) Est GFR (Non-Af Amer) BUN/Creatinine Ratio Glucose Calcium Magnesium Troponin I 0.01 0.01 B-Natriuretic Peptide Urine Color Urine Appearance Urine pH Ur Specific [place] Urine Protein Urine Ketones Urine Blood Urine Nitrate Urine Bilirubin Urine Urobilinogen Ur Leukocyte Esterase Urine Glucose Influenza A (Rapid) Negative Influenza B (Rapid) Negative 06/08/19 06/08/19 06/08/19 00:00 04:48 04:48 WBC 15.1 H RBC 3.57 L Hgb 10.3 L Hct 30 L MCV 84 MCH 29 MCHC 34 RDW 13 Plt Count 299 MPV 8.0 Neut % (Auto) 88.9 Lymph % (Auto) 4.4 [place] % (Auto) 6.4 Eos % (Auto) 0.3 Baso % (Auto) 0.0 Absolute Neuts (auto) 13.4 H Absolute Lymphs (auto) 0.7 L Absolute Monos (auto) 1.0 H Absolute Eos (auto) 0.0 Absolute Basos (auto) 0.0 Absolute Nucleated RBC 0.0 Nucleated RBC % 0.0 Sodium 133 L Potassium 2.9 L Chloride 100 L Carbon Dioxide 24 Anion Gap 9 BUN 10 Creatinine 0.72 Est GFR ( Amer) 99.3 Est GFR (Non-Af Amer) 82.1 BUN/Creatinine Ratio 13.9 Glucose 164 H Calcium 7.9 L Magnesium 1.6 L Troponin I B-Natriuretic Peptide Urine Color Yellow Urine Appearance Clear Urine pH 6.0 Ur Specific [place] 1.017 Urine Protein Negative Urine Ketones Negative Urine Blood Negative Urine Nitrate Negative Urine Bilirubin Negative Urine Urobilinogen Negative Ur Leukocyte Esterase Negative Urine Glucose Negative Influenza A (Rapid) Influenza B (Rapid) 06/08/19 04:48 WBC RBC Hgb Hct MCV MCH MCHC RDW Plt Count MPV Neut % (Auto) Lymph % (Auto) [place] % (Auto) Eos % (Auto) Baso % (Auto) Absolute Neuts (auto) Absolute Lymphs (auto) Absolute Monos (auto) Absolute Eos (auto) Absolute Basos (auto) Absolute Nucleated RBC Nucleated RBC % Sodium Potassium Chloride Carbon Dioxide Anion Gap BUN Creatinine Est GFR ( Amer) Est GFR (Non-Af Amer) BUN/Creatinine Ratio Glucose Calcium Magnesium Troponin I B-Natriuretic Peptide 43 Urine Color Urine Appearance Urine pH Ur Specific [place] Urine Protein Urine Ketones Urine Blood Urine Nitrate Urine Bilirubin Urine Urobilinogen Ur Leukocyte Esterase Urine Glucose Influenza A (Rapid) Influenza B (Rapid) Studies: None after admission Nutrition: Oral diet Impression: Community-aquired pneumonia - atypical organism (viral, H flu, etc) Plan: 1. w/u COVID-19 and isolate until results available. 2. Monitor respiratory status and need for ventilator. Critical Care Time: 35 minutes
[2019-06-08] MEDS ORDERED: cefTRIAXone(*) 1 GM in NS 0.9% 50 ML* 50 ML IVPB SCH (18:00)
[2019-06-08] MEDS: ZOSYN 3.375 GM Q8H per EXTENDED INFUSION IVPB SCH ×2 (18:27)
[2019-06-08] MEDS: Enoxaparin(*) 40 MG/0.4 ML SYR SUBCUT SCH (20:02)
[2019-06-08] MEDS: Montelukast Sodium TAB* 10 MG PO SCH (20:02)
[2019-06-08] MEDS: Atorvastatin* 10 MG TAB PO SCH (20:02)
[2019-06-08] MEDS: Acetaminophen TAB* 325 MG PO PRN (20:31)
[2019-06-09] MEDS: ZOSYN 3.375 GM Q8H per EXTENDED INFUSION IVPB SCH ×6 (02:12→17:32)
[2019-06-09] MEDS: Albuterol HFA INHALER* 8 gm MDI INH PRN (08:01)
[2019-06-09] MEDS: Mometasone/Formoter 100/5 MDI INH SCH ×2 (08:01→20:00)
[2019-06-09 08:32] LABS: Hematocrit 32 % (35-47); Hemoglobin 11.2 g/dL (12.0-16.0); Mean Corpuscular HGB Conc 35 g/dL (31-36); Mean Corpuscular Hemoglobin 29 pg (27-31); Mean Corpuscular Volume 85 fL (80-97); Mean Platelet Volume 7.7 fL (7.4-10.4); Platelet Count 352 10^3/uL (150-450); Red Blood Count 3.81 10^6 /uL (3.70-4.87); Red Cell Distribution Width 14 % (10-15); White Blood Count 18.7 10^3/uL (3.5-10.8)
[2019-06-09 08:45] LABS: BUN/Creatinine Ratio 12.9 (8-20); Calcium 8.6 mg/dL (8.6-10.3); EGFR Non-African American 97.5 (>60); Potassium 3.6 mmol/L (3.5-5.0)
[2019-06-09] MEDS ORDERED: Succinylcholine* 20 MG/ML 10 ML VIAL ONE (09:39)
[2019-06-09] MEDS ORDERED: Furosemide IV* 10 MG/ML VIAL (40 MG) IV ONE ×2 (10:30→17:34)
[2019-06-09] MEDS ORDERED: Propofol* 100 ML ONE (12:59)
[2019-06-09] MEDS: Azithromycin 500 mg/250 ml NS 500 MG/250 ML BAG IVPB SCH (13:56)
[2019-06-09] MEDS ORDERED: fentaNYL* 50 MCG/ML 5 ML VIAL (250 MCG VIAL) ONE (15:55)
[2019-06-09] MEDS ORDERED: KETAMINE HCL* 50 MG/ML 10 ML VIAL ONE (15:55)
[2019-06-09] MEDS ORDERED: diPHENhydraMINE PO* 25 MG PO PRN (17:25)
--- NOTE | 2019-06-09 17:45 | PN ---
Date of Service: 06/09/19 Critical Care Services: Has had borderline oxygenation today - SpO2 around 90% with CXR showing progression of disease. Given 40 mg lasix and showed some improvement after diuresis Vital Signs: Temp Pulse Resp BP SpO2 FiO2 99.7 F 93 32 116/68 91 100 Physical Exam: Gen: alert, oriented, appears comfortable HEENT: oropharynx clear Lungs: crackles both bases. No wheezes Cardiac: Reg rhythm Abdomen:not distended Extremities: no cyanosis or edema Fluid Balance (Past 24 Hours): 06/08/19 06/09/19 06/10/19 06:59 06:59 06:59 Intake Total 1300 2146 394.1 Output Total 0 950 1500 Balance 1300 1196 -1105.9 Weight 157 lb 11.2 oz Intake: IV Fluids 1050 761 194.1 NS (0.9%) 610 50.1 zosyn 151 144 IVPB 250 635 ABX - DOXYCYCLINE 250 azithromycin 270 mag sulfate 115 Oral 0 750 200 Output: Urine 0 950 1500 Other: Estimated Void Large Estimated Stool Amount Medium Labs: 06/09/19 06/09/19 08:11 08:11 WBC 18.7 H RBC 3.81 Hgb 11.2 L Hct 32 L MCV 85 MCH 29 MCHC 35 RDW 14 Plt Count 352 MPV 7.7 Sodium 134 L Potassium 3.6 Chloride 101 Carbon Dioxide 25 Anion Gap 8 BUN 8 Creatinine 0.62 Est GFR ( Amer) 118.0 Est GFR (Non-Af Amer) 97.5 BUN/Creatinine Ratio 12.9 Glucose 133 H Calcium 8.6 Studies: CXR: as mentioned. All cultures negative to date. Nutrition: Oral diet Impression: Progression of pneumonia, but oxygenation is adequate on high-flow nasal O2. Still no pathogen identified. Await COVID antigen test. Plan: Continue with intermittent diuresis. Continue antibiotics for now, but should discontinue them if cultures remain negative. We will watch carefully for signs that mechanical ventilation is necessary. Critical Care Time: 45 minutes
[2019-06-09] MEDS: Benzonatate CAP* 100 MG PO PRN (19:58)
[2019-06-09] MEDS: Montelukast Sodium TAB* 10 MG PO SCH (19:58)
[2019-06-09] MEDS: Acetaminophen TAB* 325 MG PO PRN (19:58)
[2019-06-09] MEDS: Atorvastatin* 10 MG TAB PO SCH (19:58)
[2019-06-09] MEDS: Enoxaparin(*) 40 MG/0.4 ML SYR SUBCUT SCH (19:59)
[2019-06-10] MEDS: ZOSYN 3.375 GM Q8H per EXTENDED INFUSION IVPB SCH ×4 (03:26→11:53)
[2019-06-10 03:48] LABS: Hematocrit 31 % (35-47); Hemoglobin 10.7 g/dL (12.0-16.0); Mean Corpuscular HGB Conc 34 g/dL (31-36); Mean Corpuscular Hemoglobin 29 pg (27-31); Mean Corpuscular Volume 85 fL (80-97); Mean Platelet Volume 7.7 fL (7.4-10.4); Platelet Count 371 10^3/uL (150-450); Red Blood Count 3.69 10^6 /uL (3.70-4.87); Red Cell Distribution Width 14 % (10-15); White Blood Count 21.1 10^3/uL (3.5-10.8)
[2019-06-10 04:08] LABS: BUN/Creatinine Ratio 16.7 (8-20); Calcium 8.7 mg/dL (8.6-10.3); EGFR African American 99.3 (>60); EGFR Non-African American 82.1 (>60); Potassium 3.2 mmol/L (3.5-5.0)
[2019-06-10] MEDS: Potassium Chloride* LIQUID 20 MEQ/15 ML UDC PO SCH ×2 (05:23→07:59)
[2019-06-10] MEDS: Mometasone/Formoter 100/5 MDI INH SCH ×2 (07:59→18:55)
[2019-06-10] MEDS: Docusate CAP* 100 MG PO SCH ×2 (07:59→21:40)
[2019-06-10] MEDS ORDERED: Furosemide IV* 10 MG/ML VIAL (40 MG) ONE (08:18)
[2019-06-10] MEDS ORDERED: Propofol* 100 ML ONE ×2 (09:02→14:43)
[2019-06-10] MEDS ORDERED: fentaNYL* 50 MCG/ML 5 ML VIAL (250 MCG VIAL) ONE (11:03)
[2019-06-10] MEDS ORDERED: Midazolam* 1 MG/ML 10 ML VIAL (10 MG) ONE (11:03)
[2019-06-10] MEDS ORDERED: Etomidate* 2 MG/ML 20 ML VIAL (40 MG) ONE (11:03)
[2019-06-10] MEDS: Azithromycin 500 mg/250 ml NS 500 MG/250 ML BAG IVPB SCH (13:19)
[2019-06-10] MEDS ORDERED: fentaNYL* 50 MCG/ML 2 ML VIAL (100 MCG VIAL) IV SLOW PU PRN (13:42)
[2019-06-10] MEDS ORDERED: Propofol* 100 ML IV ONE (14:00)
[2019-06-10] MEDS ORDERED: Propofol* 100 ML IV SCH (15:00)
[2019-06-10] MEDS: Chlorhexidine MOUTHWASH 0.12%* 15 ML UDC SCH ×2 (16:52→21:39)
[2019-06-10 17:07] LABS: Urine Appearance Cloudy; Urine Bilirubin Negative (Negative); Urine Blood Negative (Negative); Urine Color Yellow; Urine Glucose Negative (Negative); Urine Ketones Negative (Negative); Urine Nitrite Negative (Negative); Urine Protein Negative (Negative); Urine Specific Gravity 1.019 (1.010-1.030); Urine Urobilinogen Negative (Negative)
--- NOTE | 2019-06-10 17:37 | PN ---
Date of Service: 06/10/19 Critical Care Services: Patient intubated earlier today because of worsening hypoxemia and worsening CXR. Has been stable since intubation. COVID-ANTIGEN NEGATIVE. Vital Signs: Temp Pulse Resp BP SpO2 FiO2 99.9 F 92 27 113/57 93 100 Physical Exam: Gen:Sedated with propofol. HEENT: Pupils midposition and reactive Lungs: Crackles both sides Cardiac: Reg rhythm Abdomen: Not distended Extremities: No cyanosis or dedema Neuro: Sedated Fluid Balance (Past 24 Hours): 06/08/19 06/09/19 06/10/19 06:59 06:59 06:59 Intake Total 1300 2146 2003.1 Output Total 0 950 2600 Balance 1300 1196 -596.9 Weight 157 lb 11.2 oz 158 lb 4.67 oz Intake: IV Fluids 1050 761 284.1 NS (0.9%) 610 140.1 azithromycin zosyn 151 144 IVPB 250 635 559 ABX - DOXYCYCLINE 250 azithromycin 270 279 mag sulfate 115 zosyn 280 Medicated IV CC - Propofol/Diprivan Oral 0 750 1160 Output: Urine 0 950 2600 Residual Cadena 16 Fr Temperature Probe Other: Estimated Void Large Estimated Stool Amount Medium Labs: 06/07/19 06/10/19 06/10/19 17:32 03:40 03:40 WBC 21.1 H RBC 3.69 L Hgb 10.7 L Hct 31 L MCV 85 MCH 29 MCHC 34 RDW 14 Plt Count 371 MPV 7.7 Sodium 136 Potassium 3.2 L Chloride 98 L Carbon Dioxide 28 Anion Gap 10 BUN 12 Creatinine 0.72 Est GFR ( Amer) 99.3 Est GFR (Non-Af Amer) 82.1 BUN/Creatinine Ratio 16.7 Glucose 124 H Calcium 8.7 Magnesium 2.0 Urine Color Urine Appearance Urine pH Ur Specific [place] Urine Protein Urine Ketones Urine Blood Urine Nitrate Urine Bilirubin Urine Urobilinogen Ur Leukocyte Esterase Urine Glucose COVID-19 PCR Undetected 06/10/19 16:50 WBC RBC Hgb Hct MCV MCH MCHC RDW Plt Count MPV Sodium Potassium Chloride Carbon Dioxide Anion Gap BUN Creatinine Est GFR ( Amer) Est GFR (Non-Af Amer) BUN/Creatinine Ratio Glucose Calcium Magnesium Urine Color Yellow Urine Appearance Cloudy Urine pH 5.0 Ur Specific [place] 1.019 Urine Protein Negative Urine Ketones Negative Urine Blood Negative Urine Nitrate Negative Urine Bilirubin Negative Urine Urobilinogen Negative Ur Leukocyte Esterase Negative Urine Glucose Negative Impression: 1. Progressive bilateral pneumonia - no pathogen identified 2. Hypokalemia Plan: 1. D/c antibiotics (all cultures negative) 2. Brief trial of steroids for severe CAP 3. Replace potassium 4. Daily wean trials Critical Care Time: 70 minutes
[2019-06-10] MEDS ORDERED: NS 0.9% 500 ML* 500 ML IV ONE (18:00)
[2019-06-10] MEDS ORDERED: KCL 20 MEQ/100 ML IVPREMIX* 20 MEQ/100 ML BAG IV SCH (18:00)
[2019-06-10] MEDS: Acetaminophen TAB* 325 MG PO PRN (18:36)
[2019-06-10] MEDS: methylPREDNISolone SOD 40 MG* 1 ML VIAL IV SCH (18:39)
--- NOTE | 2019-06-10 19:56 | PRO ---
DATE OF PROCEDURE: 06/10/19 - ROOM #ICU-12 PROCEDURE: Endotracheal intubation. INDICATION/PROCEDURE IN DETAIL: This is a 64-year-old female with a progressive bilateral pneumonia, who was not oxygenating adequately on high flow humidified nasal O2 and required intubation, mechanical ventilation. After sedation with Versed, fentanyl and etomidate, a size 7.5 endotracheal tube was inserted under videoscopic control into the upper airway and placement was verified by exhaled CO2. The patient tolerated the procedure well and there were no apparent complications. Tube position was verified with a post- insertion chest x-ray. [id number]/CPS #: [id number] MTDD
[2019-06-10] MEDS: Atorvastatin* 10 MG TAB PO SCH (21:39)
[2019-06-10] MEDS: Enoxaparin(*) 40 MG/0.4 ML SYR SUBCUT SCH (21:39)
[2019-06-10] MEDS: Montelukast Sodium TAB* 10 MG PO SCH (21:39)
[2019-06-11] MEDS ORDERED: NS 0.9% 500 ML* 500 ML IV ONE (01:00)
[2019-06-11] MEDS: Chlorhexidine MOUTHWASH 0.12%* 15 ML UDC SCH ×6 (01:45→21:23)
[2019-06-11] MEDS: methylPREDNISolone SOD 40 MG* 1 ML VIAL IV SCH ×3 (01:47→21:24)
[2019-06-11] MEDS ORDERED: NS 0.9% 1000 ML** 1,000 ML IV SCH (02:30)
[2019-06-11 05:18] LABS: Hematocrit 28 % (35-47); Hemoglobin 9.4 g/dL (12.0-16.0); Mean Corpuscular HGB Conc 34 g/dL (31-36); Mean Corpuscular Hemoglobin 29 pg (27-31); Mean Corpuscular Volume 85 fL (80-97); Mean Platelet Volume 7.8 fL (7.4-10.4); Platelet Count 280 10^3/uL (150-450); Red Cell Distribution Width 14 % (10-15); White Blood Count 15.9 10^3/uL (3.5-10.8)
[2019-06-11 05:35] LABS: BUN/Creatinine Ratio 26.7 (8-20); Calcium 8.7 mg/dL (8.6-10.3); EGFR African American 122.6 (>60); EGFR Non-African American 101.3 (>60); Potassium 3.4 mmol/L (3.5-5.0)
[2019-06-11] MEDS: Famotidine IV* 10 MG/ML 2 ML (20 mg) IV SLOW PU SCH (08:56)
[2019-06-11] MEDS ORDERED: Docusate LIQ* 100 MG/10 ML UDC PO SCH (09:00)
[2019-06-11] MEDS: Dexmedetomidine* 1,000 MCG in NS 0.9% 250 ML* 240 ML IV SCH (09:56)
[2019-06-11] MEDS: Mometasone/Formoter 100/5 MDI INH SCH (10:08)
[2019-06-11] MEDS ORDERED: fentaNYL* 50 MCG/ML 2 ML VIAL (100 MCG VIAL) IV SLOW PU PRN (12:05)
[2019-06-11] MEDS: fentaNYL INFUSION 50 MCG/ML* 2,500 MCG/50 ML BAG IV SCH (16:30)
--- NOTE | 2019-06-11 16:47 | PN ---
Date of Service: 06/11/19 Critical Care Services: New problem: PNEUMOMEDIASTINUM (air in pericardium on CXR) and SUBQ AIR in right shoulder. No pneumothorax. Patient is hemodynamically stable. Vital Signs: Temp Pulse Resp BP SpO2 FiO2 98.8 F 64 29 117/68 93 80 Physical Exam: Gen:Sedated but arousable HEENT: Orotracheal tube in place Lungs: Crackles both sides Cardiac: No abnormal sounds Abdomen: Not distended Extremities: No cyanosis or edema Fluid Balance (Past 24 Hours): 06/09/19 06/10/19 06/11/19 06:59 06:59 06:59 Intake Total 2146 2003.1 1239 Output Total 950 2600 1285 Balance 1196 -596.9 -46 Weight 158 lb 4.67 oz 153 lb 7.068 oz Intake: IV Fluids 761 284.1 521 NS (0.9%) 610 140.1 azithromycin 521 zosyn 151 144 IVPB 635 559 430 ABX - DOXYCYCLINE 250 Calcium Gluconate azithromycin 270 279 430 mag sulfate 115 zosyn 280 Medicated IV 88 CC - Propofol/Diprivan 88 Oral 750 1160 200 Output: Urine 950 2600 900 Cadena 160 Residual 225 Cadena 16 Fr Temperature 225 Probe Other: Estimated Void Large Estimated Stool Amount Medium Labs: 06/10/19 06/11/19 06/11/19 16:50 05:00 05:00 WBC 15.9 H RBC 3.30 L Hgb 9.4 L Hct 28 L MCV 85 MCH 29 MCHC 34 RDW 14 Plt Count 280 MPV 7.8 Sodium 137 Potassium 3.4 L Chloride 100 L Carbon Dioxide 31 Anion Gap 6 BUN 16 Creatinine 0.60 Est GFR ( Amer) 122.6 Est GFR (Non-Af Amer) 101.3 BUN/Creatinine Ratio 26.7 H Glucose 174 H Calcium 8.7 Urine Color Yellow Urine Appearance Cloudy Urine pH 5.0 Ur Specific [place] 1.019 Urine Protein Negative Urine Ketones Negative Urine Blood Negative Urine Nitrate Negative Urine Bilirubin Negative Urine Urobilinogen Negative Ur Leukocyte Esterase Negative Urine Glucose Negative Studies: CXR: as mentioned. Sputum culture: Pseudomonas Fluorescens Nutrition: Start tube feedings with Glucerna Impression: Bilateral pneumonia most likely viral. The growth of pseudomonas in the sputum is of questionable significance, however I will cover this with PIP/TAZO. The addition of volutrauma to the bilateral pneumonia is not encouraging. Plan: . 1. Lung-protective ventilation with 6 cc/kg and PEEP at 5-10 cm H2O 2. Try to limit FIO2 to prevent O2 toxicity (which may already be a factor) 3. Start PIP/TAZO for presumed pseudomonas pneumonia. Critical Care Time: 45 minutes
[2019-06-11] MEDS ORDERED: Zosyn per Pharmacy* NOTE FOLLOW UP SCH (17:00)
[2019-06-11] MEDS ORDERED: Piperacillin/Tazobac ADVAN(*) 3.375 GM in NS 0.9% 100 ML* 100 ML IVPB ONE (17:00)
[2019-06-11] MEDS: Enoxaparin(*) 40 MG/0.4 ML SYR SUBCUT SCH (21:24)
[2019-06-11] MEDS: ZOSYN 3.375 GM Q8H per EXTENDED INFUSION IVPB SCH ×2 (22:03)
[2019-06-12] MEDS: Chlorhexidine MOUTHWASH 0.12%* 15 ML UDC SCH ×6 (01:19→20:28)
[2019-06-12] MEDS: Dexmedetomidine* 1,000 MCG in NS 0.9% 250 ML* 240 ML IV SCH (04:31)
[2019-06-12 04:46] LABS: Hematocrit 29 % (35-47); Hemoglobin 9.9 g/dL (12.0-16.0); Mean Corpuscular HGB Conc 34 g/dL (31-36); Mean Corpuscular Hemoglobin 29 pg (27-31); Mean Corpuscular Volume 86 fL (80-97); Mean Platelet Volume 8.2 fL (7.4-10.4); Platelet Count 318 10^3/uL (150-450); Red Blood Count 3.39 10^6 /uL (3.70-4.87); Red Cell Distribution Width 14 % (10-15); White Blood Count 18.1 10^3/uL (3.5-10.8)
[2019-06-12 05:02] LABS: BUN/Creatinine Ratio 38.3 (8-20); Calcium 8.8 mg/dL (8.6-10.3); EGFR African American 86.7 (>60); EGFR Non-African American 71.6 (>60); Potassium 3.9 mmol/L (3.5-5.0)
[2019-06-12] MEDS: ZOSYN 3.375 GM Q8H per EXTENDED INFUSION IVPB SCH ×6 (06:04→22:08)
[2019-06-12] MEDS ORDERED: Lorazepam PYXIS KEY ONE ×2 (08:43→15:10)
[2019-06-12] MEDS ORDERED: LORazepam INJ* 2 MG/ML 1 ML VIAL ONE (08:44)
[2019-06-12] MEDS: Al Hydrox/Mg Hydrox/Simet LIQ* 30 ML UDC ONE ×2 (08:49→08:56)
[2019-06-12] MEDS: methylPREDNISolone SOD 40 MG* 1 ML VIAL IV SCH (08:56)
[2019-06-12] MEDS: Famotidine IV* 10 MG/ML 2 ML (20 mg) IV SLOW PU SCH (08:56)
[2019-06-12] MEDS: LORazepam INJ* 2 MG/ML 1 ML VIAL IV PUSH PRN (15:13)
--- NOTE | 2019-06-12 15:42 | PN ---
Date of Service: 06/12/19 Critical Care Services: Continues on ventilator - CXR today shows apparent increase in pericardial air but a decrease in subQ air. Sedated with precedex and fentanyl Vital Signs: Temp Pulse Resp BP SpO2 FiO2 98.4 F 78 27 108/66 91 75 Physical Exam: Gen:Somnolent but arousable HEENT: Orotracheal tube in place Lungs: Crackles both bases Cardiac: Reg rhythm Abdomen: Not distended Extremities: No cyanosis or eema Fluid Balance (Past 24 Hours): 06/10/19 06/11/19 06:59 06:59 Intake Total 2002.1 1239 Output Total 2600 1285 Balance -596.9 -46 Weight 158 lb 153 lb Intake: IV Fluids 284.1 521 NS (0.9%) 140.1 azithromycin 521 zosyn 144 IVPB 559 430 Calcium Gluconate NS (0.9%) azithromycin 279 430 zosyn 280 Medicated IV 88 CC - Propofol/Diprivan 88 Oral 1160 200 Output: Urine 2600 900 Cadena 160 Residual 225 Cadena 16 Fr Temperature 225 Probe Other: Estimated Stool Amount Medium Labs: 06/12/19 06/12/19 04:40 04:40 WBC 18.1 H RBC 3.39 L Hgb 9.9 L Hct 29 L MCV 86 MCH 29 MCHC 34 RDW 14 Plt Count 318 MPV 8.2 Sodium 142 Potassium 3.9 Chloride 104 Carbon Dioxide 32 Anion Gap 6 BUN 31 H Creatinine 0.81 Est GFR ( Amer) 86.7 Est GFR (Non-Af Amer) 71.6 BUN/Creatinine Ratio 38.3 H Glucose 205 H Calcium 8.8 Studies: CXR Nutrition: Tube feedings Impression: Clinical condition basically unchanged in past 24 hours Plan: 1. Get FIO2 as low as possible to maintain SpO2 of 88-90% 2. Low-volume, lung protective ventilation 3. Continue PIP/TAZO for Pseudomonas in sputum (although I doubt this is a significant pathogen). Critical Care Time: 40 minutes
[2019-06-12] MEDS: fentaNYL INFUSION 50 MCG/ML* 2,500 MCG/50 ML BAG IV SCH (20:25)
[2019-06-12] MEDS: Enoxaparin(*) 40 MG/0.4 ML SYR SUBCUT SCH (20:28)
[2019-06-13] MEDS: Chlorhexidine MOUTHWASH 0.12%* 15 ML UDC SCH ×7 (02:18→23:35)
[2019-06-13 04:37] LABS: Hematocrit 31 % (35-47); Hemoglobin 10.5 g/dL (12.0-16.0); Mean Corpuscular HGB Conc 34 g/dL (31-36); Mean Corpuscular Hemoglobin 30 pg (27-31); Mean Corpuscular Volume 88 fL (80-97); Mean Platelet Volume 8.4 fL (7.4-10.4); Platelet Count 301 10^3/uL (150-450); Red Blood Count 3.53 10^6 /uL (3.70-4.87); Red Cell Distribution Width 14 % (10-15); White Blood Count 18.2 10^3/uL (3.5-10.8)
[2019-06-13 04:52] LABS: BUN/Creatinine Ratio 43.2 (8-20); Calcium 8.7 mg/dL (8.6-10.3); EGFR African American 86.7 (>60); EGFR Non-African American 71.6 (>60)
[2019-06-13] MEDS: ZOSYN 3.375 GM Q8H per EXTENDED INFUSION IVPB SCH ×6 (05:18→21:22)
[2019-06-13] MEDS ORDERED: Lorazepam PYXIS KEY ONE ×6 (07:56→23:32)
[2019-06-13] MEDS: Famotidine IV* 10 MG/ML 2 ML (20 mg) IV SLOW PU SCH (08:06)
[2019-06-13] MEDS: LORazepam INJ* 2 MG/ML 1 ML VIAL IV PUSH PRN ×6 (08:06→23:35)
[2019-06-13] MEDS ORDERED: Furosemide IV* 10 MG/ML VIAL (40 MG) ONE (08:28)
--- NOTE | 2019-06-13 17:08 | PN ---
Date of Service: 06/13/19 Critical Care Services: Remains on ventilator - CXR today shows more extensive subQ emphysema - also has borderline oxygenation with FIO2 of 100% - vent settings: VT = 300 ml, PEEP = 5 cm H2O. Vital Signs: Temp Pulse Resp BP SpO2 FiO2 100.8 F 67 44 97/60 89 90 Physical Exam: Gen:Somnolent, diaphoretic HEENT:Orotracheal tube in place. Palpable subQ air on both sides of neck. Lungs: Crackles both sides posteriorly Cardiac: Reg rhythm Abdomen: Not distended Extremities: 1+ edema upper extremities R>>L Fluid Balance (Past 24 Hours): 06/11/19 06/12/19 06/13/19 06:59 06:59 06:59 Intake Total 7866 380 8336 Output Total 1285 500 975 Balance -46 0 412 Weight 153 lb 7.068 oz 159 lb 2.78 oz 155 lb 6.814 oz Intake: IV Fluids 521 150 326 NS (0.9%) 50 268 azithromycin 521 zosyn 100 58 IVPB 430 350 100 Calcium Gluconate 0 NS (0.9%) 350 azithromycin 430 zosyn 100 Medicated IV 88 37 CC - Dexmedetomidine/ 37 Precedex CC - Propofol/Diprivan 88 IV Narcotic Infusion 64 Fentanyl 64 Oral 200 0 0 Tube Feeding 860 Output: Urine 900 Cadena 160 500 975 Residual 225 Cadena 16 Fr Temperature 225 Probe Other: Date of Last Bowel 06/13/2019 Movement # Bowel Movements 1 Estimated Stool Amount Large Labs: 06/13/19 06/13/19 04:20 04:20 WBC 18.2 H RBC 3.53 L Hgb 10.5 L Hct 31 L MCV 88 MCH 30 MCHC 34 RDW 14 Plt Count 301 MPV 8.4 Sodium 145 Potassium 4.0 Chloride 108 Carbon Dioxide 32 Anion Gap 5 BUN 35 H Creatinine 0.81 Est GFR ( Amer) 86.7 Est GFR (Non-Af Amer) 71.6 BUN/Creatinine Ratio 43.2 H Glucose 202 H Calcium 8.7 Studies: CXR: as mentioned Nutrition: Tube feedings Impression: Progression of "volutrauma" with pulmonary interstitial emphysema adding to the problems with oxygenation created by the atypical pneumonia. Prognosis very poor in this case. Plan: Keep ventilator volumes and pressures at the lowest possible settings to keep SpO2 at 88-90%. Patient is now DNR. is aware of the current situation. Critical Care Time: 60 minutes
[2019-06-13] MEDS: Enoxaparin(*) 40 MG/0.4 ML SYR SUBCUT SCH (21:22)
[2019-06-14] MEDS ORDERED: Lorazepam PYXIS KEY ONE ×5 (02:32→12:34)
[2019-06-14] MEDS: LORazepam INJ* 2 MG/ML 1 ML VIAL IV PUSH PRN ×4 (02:34→19:30)
[2019-06-14] MEDS: Chlorhexidine MOUTHWASH 0.12%* 15 ML UDC SCH ×5 (03:49→22:10)
[2019-06-14] MEDS: Dexmedetomidine* 1,000 MCG in NS 0.9% 250 ML* 240 ML IV SCH (03:49)
[2019-06-14] MEDS: fentaNYL INFUSION 50 MCG/ML* 2,500 MCG/50 ML BAG IV SCH (03:49)
[2019-06-14 04:52] LABS: Hematocrit 29 % (35-47); Hemoglobin 9.4 g/dL (12.0-16.0); Mean Corpuscular Volume 88 fL (80-97); Red Blood Count 3.29 10^6 /uL (3.70-4.87); White Blood Count 16.3 10^3/uL (3.5-10.8)
[2019-06-14 04:53] LABS: Mean Corpuscular HGB Conc 33 g/dL (31-36); Mean Corpuscular Hemoglobin 29 pg (27-31); Mean Platelet Volume 8.1 fL (7.4-10.4); Platelet Count 200 10^3/uL (150-450); Red Cell Distribution Width 14 % (10-15)
[2019-06-14 05:01] LABS: BUN/Creatinine Ratio 40.3 (8-20); EGFR African American 91.9 (>60); Potassium 3.6 mmol/L (3.5-5.0)
[2019-06-14] MEDS: ZOSYN 3.375 GM Q8H per EXTENDED INFUSION IVPB SCH ×2 (06:00)
[2019-06-14] MEDS ORDERED: LORazepam INJ* 2 MG/ML 1 ML VIAL ONE (09:12)
[2019-06-14] MEDS: Famotidine IV* 10 MG/ML 2 ML (20 mg) IV SLOW PU SCH (09:40)
[2019-06-14] MEDS: Acetaminophen TAB* 325 MG PO PRN (09:40)
[2019-06-14] MEDS ORDERED: Heparin VIAL(*) 5000 UNITS/ML VIAL (FIVE THOUSAND) IV SCH (12:00)
--- NOTE | 2019-06-14 12:07 | PN ---
Date of Service: 06/14/19 Critical Care Services: Worsening pneumomediastinum with stable PTXs Vital Signs: Temp Pulse Resp BP SpO2 FiO2 38.8 C 79 45 109/61 89 100 06/14/19 11:30 06/14/19 11:30 06/14/19 09:14 06/14/19 11:30 06/14/19 11:30 06/13 09:15 Physical Exam: Gen: Awake on vent and uncomfortable HEENT: NCAT, PERRL Lungs: rales bilat Cardiac: S1S2 tachy Abdomen: soft, NT, ND, +BS Extremities: RUE edema +2 and focal Neuro: A&O, grossly non-focal, mildly agitated Fluid Balance (Past 24 Hours): I= O= Net Intake & Output 06/12/19 06/13/19 06/14/19 06/15/19 06:59 06:59 06:59 06:59 Intake Total 500 1387 3168 Output Total 389 192 1750 130 Balance 0 412 671 -130 Weight 72.2 kg 70.5 kg 70.9 kg Intake: IV Fluids 150 326 462 NS (0.9%) 50 268 462 zosyn 100 58 IVPB 350 100 479 Calcium Gluconate 0 NS (0.9%) 350 zosyn 100 479 Medicated IV 37 185 CC - Dexmedetomidine/ 37 185 Precedex IV Narcotic Infusion 64 51 Fentanyl 64 51 Oral 0 0 Tube Feeding 860 1990 Output: Cadena 581 793 0007 130 Other: Date of Last Bowel 06/13/2019 Movement # Bowel Movements 1 Estimated Stool Amount Large Labs: Laboratory Results - last 24 hr 06/14/19 06/14/19 04:35 04:35 WBC 16.3 H RBC 3.29 L Hgb 9.4 L Hct 29 L MCV 88 MCH 29 MCHC 33 RDW 14 Plt Count 200 MPV 8.1 Sodium 150 H Potassium 3.6 Chloride 110 Carbon Dioxide 35 H Anion Gap 5 BUN 31 H Creatinine 0.77 Est GFR ( Amer) 91.9 Est GFR (Non-Af Amer) 76.0 BUN/Creatinine Ratio 40.3 H Glucose 211 H Calcium 8.0 L Studies: CXR with pneumomediastinum and dense bilateral infiltrates Nutrition: Bing TF with mild hyperglycemia Impression: Severe Acute Hypoxic Respiratory Failure secondary to necrotizing pseudomonal pneumonia complicated by pneumomediastinum and PTXs Plan: Severe Acute Hypoxic Respiratory Failure - secondary to necrotizing pseudomonal pneumonia complicated by pneumomediastinum and PTXs 100% FIO2 on rounds this AM with SaO2 at 87% pPeak at 36 on PCV 26/10. Ventilator adjusted to APRV pHigh 30 and SaO2 slowly rising, currently 90% and pPeak obviously 6cm H20 lower. Trying to minimize pressure as well as dyssynchrony through pressure targeted ventilation and APRV which requires no synchrony at all. Will also more deeply sedate. We have nothing else to offer for terminal hypoxia here and if she can get a few days of stability with no worsening of her volu/amee-trauma and allow the antibiotics to work she may yet be able to recover. Certainly she is extraordinarily ill as explained to her but if nothing new occurs she may yet get the chance to rally. Continue zosyn, WBC coming down. DVT - RUE doppler ordered this AM for focal edema. Subclavian DVT diagnosed. Will start heparin without bolus, at high risk to bleed in chest and that would be fatal. Continue TF, advance glycemic control. GI/DVT rpophylaxis and advance sedation in this scenario. Critical Care Time: 45 minutes
[2019-06-14] MEDS ORDERED: Dextrose 50% Syringe 50 ML* 25 GM/50 ML SYRINGE IV PUSH PRN (12:30)
[2019-06-14] MEDS: Heparin DRIP 25,000 UNITS(*) 25,000 UNITS/500 ML BAG IV SCH (12:43)
[2019-06-14] MEDS ORDERED: Lorazepam PYXIS KEY PRN (14:00)
[2019-06-14] MEDS: Meropenem 1 GM PREMIX(*) 1 GM/50 ML BAG IV SCH ×2 (14:29→23:11)
[2019-06-14] MEDS: Acetaminophen ADULT LIQ* 650 MG/20.3 ML UDC PO PRN ×2 (14:29→21:30)
[2019-06-14] MEDS ORDERED: Acetaminophen IV 1GM/100ML * 100 ML IVPB ONE (17:13)
[2019-06-14] MEDS: Insulin LISPRO* 1 UNITS UNIT SUBCUT SCH (18:59)
[2019-06-14] MEDS ORDERED: LORazepam INJ* 2 MG/ML 1 ML VIAL IV PUSH PRN (19:40)
[2019-06-14] MEDS ORDERED: LORazepam INJ* 2 MG/ML 1 ML VIAL IV PUSH ONE ×4 (19:44→20:06)
[2019-06-14] MEDS ORDERED: Lidocaine 1% w EPI 1:100,000* MDV 20 ML VIAL ONE (22:33)
--- NOTE | 2019-06-14 23:22 | OP ---
Operative Report - Blank - Operative Report Date of Operation: 06/14/19 Note: OPERATIVE REPORT Pre-op: Left pneumothorax Post-Op: Same Procedure: Insertion of left #28 Vietnamese chest tube Surgeon: MD Deep Asst: none Anes: 1 % lidocaine with epinephrine IVF:min EBL:min Specimen: none Drain: #28F chest tube Wound: 1 Findings: Left pneumothorax Performed in ICU 12
[2019-06-15] MEDS: Dexmedetomidine* 1,000 MCG in NS 0.9% 250 ML* 240 ML IV SCH ×2 (00:24→16:43)
--- NOTE | 2019-06-15 00:40 | OP ---
DATE OF OPERATION: 06/14/19 - ROOM #ICU-12 DATE OF : 59 SURGEON: Jac Adame MD ASSEMBLY RIVETER: None. ANESTHESIA: 1% lidocaine with epinephrine. PRE-OP DIAGNOSIS: Left pneumothorax. POST-OP DIAGNOSIS: Left pneumothorax. OPERATIVE PROCEDURE: Insertion of a #28-Namibian left chest tube. ESTIMATED BLOOD LOSS: Minimal. IV FLUIDS: Minimal. SPECIMENS: None. WOUND CLASSIFICATION: I. DRAINS: #28-Namibian chest tube. COMPLICATIONS: None. FINDINGS: Large sarkar of air entering the left chest cavity with no fluid. BRIEF HISTORY: Ms. Odalys Camargo is a 64-year-old woman with severe bilateral pneumonias, on ventilator with high airway pressures. She has had the bilateral small apical pneumothoraces this morning, developed tachycardia and agitation as well as hypoxia. Earlier this evening, a chest x-ray revealed a moderate-sized left pneumothorax and Surgery was consulted for placement of a chest tube by USMAN Hough. I personally reviewed the chest x-ray and examined the patient. She is sedated on the ventilator and her was present. Written informed consent was obtained from the patient after a brief, but thorough discussion regarding the placement and management as well as the risks of chest tubes. The risks of, but not limited to bleeding, infection, cardiopulmonary injury, persistent pneumothorax with a malfunction tube and discomfort were all explained. The patient has a significant amount of subcutaneous air over the chest and abdominal wall; and, due to this, I did not feel that a smaller percutaneous 8- Namibian chest tube anteriorly would be optimal due to positioning and dislodgement, and I made a decision to proceed with a larger formal left chest tube as described below. DESCRIPTION OF PROCEDURE: Written informed consent was obtained, the left chest was marked with indelible ink and the patient was placed in a slightly sitting upright position in the intensive care unit. The left anterior and lateral chest were prepped and draped in usual sterile fashion. A time-out verification was completed. 1% lidocaine with epinephrine was infiltrated of the left lateral breast crease , slightly anterior to the axillary line. An oblique incision was made and blunt dissection was carried down to the rib space. Once I identified the superior aspect of what was most likely the 7th or 8th rib , using a large Em, I was able to pass through the peritoneum into the chest cavity with a large sarkar of air. The hole was enlarged with my finger and I assured myself by placing my finger into the chest cavity and there were no adhesions. A #28 chest tube was then passed without difficulty to about 18 cm. There was sarkar of air persistent and condensation on the tube. The tube was then secured to the skin with several 0 Prolene sutures and subsequently the tube was attached to the suction device at 20 cm of suction. Occlusive Vaseline gauze were then placed around the tube and this was covered with dry gauze, 4x4s and secured with wide foam tape to securely attach the dressing. Postprocedural chest x-ray showed the chest tube to be in good position with a small residual apical pneumothorax similar to the appearance on the morning's chest x-ray. Once again, there were massive amounts of subcutaneous air bilaterally and there was no change in the small right apical pneumothorax, which had been noted in the morning's film. [id number]/CPS #: [id number] [facility]
[2019-06-15] MEDS: Acetaminophen ADULT LIQ* 650 MG/20.3 ML UDC PO PRN ×2 (01:37→11:55)
[2019-06-15] MEDS: Chlorhexidine MOUTHWASH 0.12%* 15 ML UDC SCH ×6 (01:38→20:06)
[2019-06-15] MEDS: Insulin LISPRO* 1 UNITS UNIT SUBCUT SCH ×4 (01:38→18:09)
[2019-06-15] MEDS: fentaNYL INFUSION 50 MCG/ML* 2,500 MCG/50 ML BAG IV SCH (04:37)
[2019-06-15 05:57] LABS: Hematocrit 28 % (35-47); Hemoglobin 9.2 g/dL (12.0-16.0); Mean Corpuscular HGB Conc 33 g/dL (31-36); Mean Corpuscular Hemoglobin 29 pg (27-31); Mean Corpuscular Volume 89 fL (80-97); Mean Platelet Volume 9.5 fL (7.4-10.4); Platelet Count 232 10^3/uL (150-450); Red Blood Count 3.15 10^6 /uL (3.70-4.87); Red Cell Distribution Width 15 % (10-15); White Blood Count 19.7 10^3/uL (3.5-10.8)
[2019-06-15] MEDS: Meropenem 1 GM PREMIX(*) 1 GM/50 ML BAG IV SCH ×3 (06:29→23:17)
[2019-06-15 07:08] LABS: Albumin 2.5 g/dL (3.2-5.2); Total Bilirubin 0.2 mg/dL (0.2-1.0)
[2019-06-15 07:09] LABS: Magnesium 3.6 mg/dL (1.9-2.7)
[2019-06-15 07:12] LABS: Albumin/Globulin Ratio 0.7 (1-3); BUN/Creatinine Ratio 38.4 (8-20); EGFR African American 68.8 (>60); EGFR Non-African American 56.8 (>60); Globulin 3.4 g/dL (2-4); Phosphorus 4.4 mg/dL (2.5-5.0); Total Protein 5.9 g/dL (6.4-8.9)
[2019-06-15] MEDS: Famotidine IV* 10 MG/ML 2 ML (20 mg) IV SLOW PU SCH (08:30)
--- NOTE | 2019-06-15 09:47 | PN ---
Date of Service: 06/15/19 Critical Care Services: PTX worsened overnight. Chest Tube graciously placed by Dr. Adame Vital Signs: Temp Pulse Resp BP SpO2 FiO2 38.2 C 59 13 93/50 92 90 06/15/19 06:00 06/15/19 06:00 06/15/19 06:00 06/15/19 06:00 06/15/19 06:00 06/14 04:00 Physical Exam: Gen: rousable on vent, appears critically ill HEENT: NCAT, PERRL, stable subcut emphysema, intubated Lungs: rales Cardiac: S1S2 regular Abdomen: soft, NT, ND, hypo BS Extremities: +1 edema, RUE edema appears improved today, now more symmetrical Neuro: responsive through sedation Fluid Balance (Past 24 Hours): I= O= Net Intake & Output 06/13/19 06/14/19 06/15/19 06/16/19 06:59 06:59 06:59 06:59 Intake Total 1387 3168 2337.6 Output Total 975 4297 761 Balance 246 970 5055.6 Weight 70.5 kg 70.9 kg Intake: IV Fluids 326 462 34 NS (0.9%) 268 462 34 zosyn 58 IVPB 100 479 248 iv tylenol 100 meropenem 148 zosyn 100 479 Medicated IV 37 185 799.6 CC - Dexmedetomidine/ 37 185 362.6 Precedex heparin 437 IV Narcotic Infusion 64 51 Fentanyl 64 51 Oral 0 Tube Feeding 860 1990 1156 Tube Feeding Flush Amount 100 Output: Cadena 979 2497 761 Other: Date of Last Bowel 06/13/2019 Movement # Bowel Movements 1 Estimated Stool Amount Large Labs: Laboratory Results - last 24 hr 06/14/19 06/14/19 06/14/19 12:06 18:49 19:15 WBC RBC Hgb Hct MCV MCH MCHC RDW Plt Count MPV APTT 26.4 41.7 H Patient Temperature ABG pH ABG pCO2 ABG pO2 ABG HCO3 ABG O2 Saturation ABG Base Excess Respiration Rate O2 Delivery Device Ventilator Type Vent Mode FiO2 Inspiratory Time PEEP Pressure Support Pressure Control EPAP IPAP BiPAP Sodium Potassium Chloride Carbon Dioxide Anion Gap BUN Creatinine Est GFR ( Amer) Est GFR (Non-Af Amer) BUN/Creatinine Ratio Glucose POC Glucose (mg/dL) 261 H Calcium Phosphorus Magnesium Total Bilirubin AST ALT Alkaline Phosphatase Total Protein Albumin Globulin Albumin/Globulin Ratio 06/14/19 06/14/19 06/15/19 19:51 23:47 01:01 WBC RBC Hgb Hct MCV MCH MCHC RDW Plt Count MPV APTT Patient Temperature Not Reportable ABG pH 7.30 L ABG pCO2 74 H* ABG pO2 59 L* ABG HCO3 30.3 ABG O2 Saturation 88.5 L ABG Base Excess 7.2 H Respiration Rate Not Reportable O2 Delivery Device vent Ventilator Type Not Reportable Vent Mode aprv FiO2 100 Inspiratory Time Not Reportable PEEP 10 Pressure Support Not Reportable Pressure Control Not Reportable EPAP Not Reportable IPAP Not Reportable BiPAP Not Reportable Sodium Potassium Chloride Carbon Dioxide Anion Gap BUN Creatinine Est GFR ( Amer) Est GFR (Non-Af Amer) BUN/Creatinine Ratio Glucose POC Glucose (mg/dL) 182 H 192 H Calcium Phosphorus Magnesium Total Bilirubin AST ALT Alkaline Phosphatase Total Protein Albumin Globulin Albumin/Globulin Ratio 06/15/19 06/15/19 06/15/19 05:45 05:45 05:52 WBC 19.7 H RBC 3.15 L Hgb 9.2 L Hct 28 L MCV 89 MCH 29 MCHC 33 RDW 15 Plt Count 232 MPV 9.5 APTT 109.6 H* Patient Temperature ABG pH ABG pCO2 ABG pO2 ABG HCO3 ABG O2 Saturation ABG Base Excess Respiration Rate O2 Delivery Device Ventilator Type Vent Mode FiO2 Inspiratory Time PEEP Pressure Support Pressure Control EPAP IPAP BiPAP Sodium 151 H Potassium 5.0 Chloride 110 Carbon Dioxide 35 H Anion Gap 6 BUN 38 H Creatinine 0.99 H Est GFR ( Amer) 68.8 Est GFR (Non-Af Amer) 56.8 BUN/Creatinine Ratio 38.4 H Glucose 216 H POC Glucose (mg/dL) Calcium 8.0 L Phosphorus 4.4 Magnesium 3.6 H Total Bilirubin 0.20 AST 28 ALT 25 Alkaline Phosphatase 123 H Total Protein 5.9 L Albumin 2.5 L Globulin 3.4 Albumin/Globulin Ratio 0.7 L 06/15/19 06:41 WBC RBC Hgb Hct MCV MCH MCHC RDW Plt Count MPV APTT Patient Temperature ABG pH ABG pCO2 ABG pO2 ABG HCO3 ABG O2 Saturation ABG Base Excess Respiration Rate O2 Delivery Device Ventilator Type Vent Mode FiO2 Inspiratory Time PEEP Pressure Support Pressure Control EPAP IPAP BiPAP Sodium Potassium Chloride Carbon Dioxide Anion Gap BUN Creatinine Est GFR ( Amer) Est GFR (Non-Af Amer) BUN/Creatinine Ratio Glucose POC Glucose (mg/dL) 245 H Calcium Phosphorus Magnesium Total Bilirubin AST ALT Alkaline Phosphatase Total Protein Albumin Globulin Albumin/Globulin Ratio Studies: CXR with dense bilateral pneumonia, stable penumonomedaistinum and more subcut air, left PTX vastly improved if not resolved Nutrition: TF Impression: Severe Acute Hypoxic Respiratory Failure secondary to pseudomonal pneumonia complicated by spontaneous PTXs Plan: Severe Acute Hypoxic Respiratory Failure - secondary to pseudomonal pneumonia complicated by spontaneous PTXs Abx change to carbapenem yesterday further supported by the reculture from Friday. Now growing P. Aeroginosa and RESISTANT to Zosyn which explains her course, Merrem looks good by MAGGIE but given her ongoing fever and deterioration will add the quinolone as well. She has no other options and now that she is on more targeted antimicrobial therapy she will have her best chance for any recovery. Ventilator must remain at Pplat under 30. Currently APRV at 30 which is perfect for now. PTX - worsened overnight with pt agitation and increasing vent pressures. Heroically treated with chest tube by Dr. Adame with our great thanks. CXR shows much improved PTX if not fully resolved. CT in great position. DVT - heparin therapeutic and arm looks better. Will keep I=O as goal today with sedation primary need to limit overpressures. Critical Care Time: 35 minutes
[2019-06-15] MEDS: Insulin GLARGINE(*) 1 UNITS UNIT SUBCUT SCH (10:29)
[2019-06-15] MEDS: Heparin DRIP 25,000 UNITS(*) 25,000 UNITS/500 ML BAG IV SCH (10:29)
[2019-06-15] MEDS: Levofloxacin 750 MG IVPREMIX(* 750 MG/150 ML BAG IVPB SCH (11:55)
[2019-06-15] MEDS ORDERED: LORazepam INJ* 2 MG/ML 1 ML VIAL ONE (17:23)
[2019-06-15] MEDS ORDERED: Lorazepam PYXIS KEY ONE (17:23)
[2019-06-15] MEDS ORDERED: LORazepam INJ* 2 MG/ML 1 ML VIAL IV PUSH ONE (17:25)
[2019-06-15] MEDS: LORazepam VIAL (for drip)* 100 MG in D5W 100 ML BAG* 50 ML IV SCH (18:09)
[2019-06-16] MEDS: Chlorhexidine MOUTHWASH 0.12%* 15 ML UDC SCH ×6 (00:26→21:55)
[2019-06-16] MEDS: Insulin LISPRO* 1 UNITS UNIT SUBCUT SCH ×4 (00:26→17:34)
[2019-06-16] MEDS: fentaNYL INFUSION 50 MCG/ML* 2,500 MCG/50 ML BAG IV SCH (04:08)
[2019-06-16 04:13] LABS: Hematocrit 27 % (35-47); Hemoglobin 8.9 g/dL (12.0-16.0); Mean Corpuscular HGB Conc 33 g/dL (31-36); Mean Corpuscular Hemoglobin 30 pg (27-31); Mean Corpuscular Volume 89 fL (80-97); Mean Platelet Volume 9.4 fL (7.4-10.4); Platelet Count 269 10^3/uL (150-450); Red Cell Distribution Width 14 % (10-15); White Blood Count 18.2 10^3/uL (3.5-10.8)
[2019-06-16 04:29] LABS: Albumin 2.5 g/dL (3.2-5.2); Albumin/Globulin Ratio 0.7 (1-3); BUN/Creatinine Ratio 47.3 (8-20); Calcium 8.5 mg/dL (8.6-10.3); EGFR African American 96.2 (>60); EGFR Non-African American 79.5 (>60); Globulin 3.5 g/dL (2-4); Magnesium 3.2 mg/dL (1.9-2.7); Phosphorus 2.6 mg/dL (2.5-5.0); Potassium 4.3 mmol/L (3.5-5.0); Total Bilirubin 0.1 mg/dL (0.2-1.0)
[2019-06-16] MEDS: Dexmedetomidine* 1,000 MCG in NS 0.9% 250 ML* 240 ML IV SCH ×2 (04:47→15:33)
[2019-06-16 04:53] LABS: ABS Eosinophils 0.6 10^3/ul (0-0.6); ABS Lymphocytes 1.2 10^3/ul (1.0-4.8); ABS Monocytes 0.9 10^3/ul (0-0.8); ABS Neutrophils 15.6 10^3/ul (1.5-7.7); Eosinophil % 3.3 %; Lymphocyte % 6.3 %; Nucleated Red Blood Cells % 0.1
[2019-06-16] MEDS: Heparin DRIP 25,000 UNITS(*) 25,000 UNITS/500 ML BAG IV SCH ×2 (05:17→23:44)
[2019-06-16] MEDS: Meropenem 1 GM PREMIX(*) 1 GM/50 ML BAG IV SCH ×3 (06:03→21:54)
[2019-06-16] MEDS: Famotidine IV* 10 MG/ML 2 ML (20 mg) IV SLOW PU SCH (08:50)
[2019-06-16] MEDS: Insulin GLARGINE(*) 1 UNITS UNIT SUBCUT SCH ×2 (08:51→11:36)
[2019-06-16] MEDS: Levofloxacin 750 MG IVPREMIX(* 750 MG/150 ML BAG IVPB SCH (08:51)
[2019-06-16] MEDS ORDERED: Furosemide IV* 10 MG/ML 10 ML VIAL (100 MG) IV ONE (09:24)
--- NOTE | 2019-06-16 10:35 | PN ---
Date of Service: 06/16/19 Critical Care Services: No new events overnight Vital Signs: Temp Pulse Resp BP SpO2 FiO2 3.2 C 76 13 129/78 85 90 06/16/19 00:59 06/16/19 09:30 06/16/19 09:00 06/16/19 09:30 06/16/19 09:30 06/15 04:00 Physical Exam: Gen: HEENT: Lungs: Cardiac: Abdomen: Extremities: Neuro: Fluid Balance (Past 24 Hours): I= O= Net Intake & Output 06/14/19 06/15/19 06/16/19 06/17/19 06:59 06:59 06:59 06:59 Intake Total 3168 2337.6 2818.3 201 Output Total 2497 761 858 125 Balance 671 1576.6 1960.3 76 Weight 70.9 kg 76.4 kg Intake: IV Fluids 462 34 235.3 Levaquin 150 NS (0.9%) 462 34 85.3 IVPB 479 248 180 iv tylenol 100 meropenem 148 180 zosyn 479 Medicated IV 185 799.6 1052 CC - Dexmedetomidine/ 185 362.6 468 Precedex heparin 437 584 IV Narcotic Infusion 51 47 Fentanyl 51 47 Oral 0 Tube Feeding 1990 1156 1304 201 Tube Feeding Flush Amount 100 Output: Chest Tube #1 15 Cadena 2497 761 843 125 Labs: Laboratory Results - last 24 hr 06/15/19 06/15/19 06/15/19 11:41 14:57 17:55 WBC RBC Hgb Hct MCV MCH MCHC RDW Plt Count MPV Neut % (Auto) Lymph % (Auto) [place] % (Auto) Eos % (Auto) Baso % (Auto) Absolute Neuts (auto) Absolute Lymphs (auto) Absolute Monos (auto) Absolute Eos (auto) Absolute Basos (auto) Absolute Nucleated RBC Neutrophils % Lymphocytes % Monocytes % Eosinophils % Nucleated RBC % Normal RBC Morphology Hypochromasia APTT 69.2 H Sodium Potassium Chloride Carbon Dioxide Anion Gap BUN Creatinine Est GFR ( Amer) Est GFR (Non-Af Amer) BUN/Creatinine Ratio Glucose POC Glucose (mg/dL) 196 H 233 H Calcium Ionized Calcium Phosphorus Magnesium Total Bilirubin AST ALT Alkaline Phosphatase Total Protein Albumin Globulin Albumin/Globulin Ratio 06/15/19 06/16/19 06/16/19 21:50 04:00 04:00 WBC 18.2 H RBC 3.00 L Hgb 8.9 L Hct 27 L MCV 89 MCH 30 MCHC 33 RDW 14 Plt Count 269 MPV 9.4 Neut % (Auto) 85.3 Lymph % (Auto) 6.3 [place] % (Auto) 4.9 Eos % (Auto) 3.3 Baso % (Auto) 0.2 Absolute Neuts (auto) 15.6 H Absolute Lymphs (auto) 1.2 Absolute Monos (auto) 0.9 H Absolute Eos (auto) 0.6 Absolute Basos (auto) 0.0 Absolute Nucleated RBC 0.0 Neutrophils % 86.0 Lymphocytes % 4.0 Monocytes % 7.0 Eosinophils % 3.0 Nucleated RBC % 0.1 Normal RBC Morphology Not Reportable Hypochromasia 1+ APTT 72.8 H Sodium 150 H Potassium 4.3 Chloride 109 Carbon Dioxide 38 H Anion Gap 3 BUN 35 H Creatinine 0.74 Est GFR ( Amer) 96.2 Est GFR (Non-Af Amer) 79.5 BUN/Creatinine Ratio 47.3 H Glucose 225 H POC Glucose (mg/dL) Calcium 8.5 L Ionized Calcium Phosphorus 2.6 Magnesium 3.2 H Total Bilirubin 0.10 L AST 13 ALT 20 Alkaline Phosphatase 90 Total Protein 6.0 L Albumin 2.5 L Globulin 3.5 Albumin/Globulin Ratio 0.7 L 06/16/19 06/16/19 04:00 05:23 WBC RBC Hgb Hct MCV MCH MCHC RDW Plt Count MPV Neut % (Auto) Lymph % (Auto) [place] % (Auto) Eos % (Auto) Baso % (Auto) Absolute Neuts (auto) Absolute Lymphs (auto) Absolute Monos (auto) Absolute Eos (auto) Absolute Basos (auto) Absolute Nucleated RBC Neutrophils % Lymphocytes % Monocytes % Eosinophils % Nucleated RBC % Normal RBC Morphology Hypochromasia APTT 65.3 H Sodium Potassium Chloride Carbon Dioxide Anion Gap BUN Creatinine Est GFR ( Amer) Est GFR (Non-Af Amer) BUN/Creatinine Ratio Glucose POC Glucose (mg/dL) Calcium Ionized Calcium 1.08 L Phosphorus Magnesium Total Bilirubin AST ALT Alkaline Phosphatase Total Protein Albumin Globulin Albumin/Globulin Ratio Plan: Severe Acute Hypoxic Respiratory Failure - secondary to pseudomonal pneumonia complicated by spontaneous PTXs Abx Day #3 Meropenem and #2 Levaquin for P. Aeroginosa RESISTANT to initial approrpiate empiric therapy. She has no other options and now that she is on more targeted antimicrobial therapy she will have her best chance for any recovery. Ventilator must remain at Pplat under 30. Currently APRV at 30 which is perfect for now. SaO2 a little lower today and more edema, BP and renal indices look better, will give her some lasix and aim a couple of liters off the next 24H PTX - CXR shows much improved PTX overall if not fully resolved. CT in great position. DVT - heparin therapeutic and arm looks better. Long D/W at bedside regarding the long odds but true opportunity for survival if she can hang on long enough for the Abx to get ahead of the bug. He voiced clear understanding and appreciation for the care. Appropriately remains DNR. Critical Care Time: 35 minutes
[2019-06-16] MEDS ORDERED: Insulin GLARGINE(*) 1 UNITS UNIT SUBCUT ONE (11:07)
[2019-06-16] MEDS: LORazepam VIAL (for drip)* 100 MG in D5W 100 ML BAG* 50 ML IV SCH (15:31)
[2019-06-17] MEDS: Insulin LISPRO* 1 UNITS UNIT SUBCUT SCH ×4 (00:35→18:00)
[2019-06-17] MEDS: Dexmedetomidine* 1,000 MCG in NS 0.9% 250 ML* 240 ML IV SCH ×3 (00:49→20:40)
[2019-06-17] MEDS: Chlorhexidine MOUTHWASH 0.12%* 15 ML UDC SCH ×6 (02:14→21:20)
[2019-06-17 05:38] LABS: Hematocrit 27 % (35-47); Hemoglobin 8.7 g/dL (12.0-16.0); Mean Corpuscular HGB Conc 32 g/dL (31-36); Mean Corpuscular Hemoglobin 28 pg (27-31); Mean Corpuscular Volume 88 fL (80-97); Mean Platelet Volume 9.6 fL (7.4-10.4); Platelet Count 320 10^3/uL (150-450); Red Blood Count 3.09 10^6 /uL (3.70-4.87); Red Cell Distribution Width 14 % (10-15)
[2019-06-17 05:49] LABS: Albumin 2.4 g/dL (3.2-5.2); Albumin/Globulin Ratio 0.7 (1-3); BUN/Creatinine Ratio 44.5 (8-20); Calcium 8.4 mg/dL (8.6-10.3); EGFR African American 60.9 (>60); EGFR Non-African American 50.3 (>60); Globulin 3.5 g/dL (2-4); Potassium 4.8 mmol/L (3.5-5.0); Total Bilirubin 0.2 mg/dL (0.2-1.0); Total Protein 5.9 g/dL (6.4-8.9)
[2019-06-17] MEDS: Meropenem 1 GM PREMIX(*) 1 GM/50 ML BAG IV SCH ×3 (06:23→21:20)
[2019-06-17] MEDS: fentaNYL INFUSION 50 MCG/ML* 2,500 MCG/50 ML BAG IV SCH (06:23)
[2019-06-17 08:05] LABS: ABS Basophils 0.1 10^3/ul (0-0.2); ABS Eosinophils 0.4 10^3/ul (0-0.6); ABS Monocytes 0.8 10^3/ul (0-0.8); ABS Neutrophils 12.7 10^3/ul (1.5-7.7); Eosinophil % 2.8 %; Lymphocyte % 6.8 %
[2019-06-17] MEDS: Famotidine IV* 10 MG/ML 2 ML (20 mg) IV SLOW PU SCH (10:24)
[2019-06-17] MEDS: Levofloxacin 750 MG IVPREMIX(* 750 MG/150 ML BAG IVPB SCH (10:24)
[2019-06-17] MEDS: Insulin GLARGINE(*) 1 UNITS UNIT SUBCUT SCH (10:24)
--- NOTE | 2019-06-17 11:55 | PN ---
Date of Service: 06/17/19 Critical Care Services: Stable overnight Vital Signs: Temp Pulse Resp BP SpO2 FiO2 38.1 C 70 13 93/58 88 100 06/17/19 09:00 06/17/19 09:00 06/17/19 06:23 06/17/19 09:00 06/17/19 09:00 06/16 04:00 Physical Exam: Gen: sedated, diffuse subcut air HEENT: PERRL Lungs: rales Cardiac: S1S2 regular Abdomen: soft, ND, +BS Extremities: +1 edema plus subcut air Neuro: moves ext spont Fluid Balance (Past 24 Hours): I= O= Net Intake & Output 06/15/19 06/16/19 06/17/19 06/18/19 06:59 06:59 06:59 06:59 Intake Total 2337.6 2818.3 2062.7 Output Total 768 290 0867 195 Balance 1576.6 1960.3 437.7 -195 Weight 76.4 kg 74.5 kg Intake: IV Fluids 34 235.3 310.7 Levaquin 150 156 NS (0.9%) 34 85.3 42.7 meropenem 112 IVPB 248 180 100 iv tylenol 100 meropenem 148 180 100 Medicated IV 799.6 1052 619 CC - Dexmedetomidine/ 362.6 468 301 Precedex heparin 437 584 318 IV Narcotic Infusion 47 52 Fentanyl 47 52 Oral 0 0 Tube Feeding 1156 1304 921 Tube Feeding Flush Amount 100 NG Tube Irrigate Amount 60 Output: Chest Tube #1 15 Cadena 089 849 9070 195 Other: Date of Last Bowel 06/16/19 Movement # Bowel Movements 1 Estimated Stool Amount Small Labs: Laboratory Results - last 24 hr 06/16/19 06/17/19 06/17/19 17:25 00:28 05:20 WBC 15.0 H RBC 3.09 L Hgb 8.7 L Hct 27 L MCV 88 MCH 28 MCHC 32 RDW 14 Plt Count 320 MPV 9.6 Neut % (Auto) 84.4 Lymph % (Auto) 6.8 [place] % (Auto) 5.2 Eos % (Auto) 2.8 Baso % (Auto) 0.8 Absolute Neuts (auto) 12.7 H Absolute Lymphs (auto) 1.0 Absolute Monos (auto) 0.8 Absolute Eos (auto) 0.4 Absolute Basos (auto) 0.1 Absolute Nucleated RBC 0.0 Immature Gran % 6.0 Neutrophils % 81.0 Band Neutrophils % 3.0 Lymphocytes % 3.0 Monocytes % 10.0 Metamyelocytes % 1.0 Myelocytes % 2.0 H Nucleated RBC % 0.0 Nucleated RBCs/100 WBC 1.0 H Normal RBC Morphology Normal APTT Sodium Potassium Chloride Carbon Dioxide Anion Gap BUN Creatinine Est GFR ( Amer) Est GFR (Non-Af Amer) BUN/Creatinine Ratio Glucose POC Glucose (mg/dL) 232 H 239 H Calcium Total Bilirubin AST ALT Alkaline Phosphatase Total Protein Albumin Globulin Albumin/Globulin Ratio 0206/17/19 05:20 05:20 WBC RBC Hgb Hct MCV MCH MCHC RDW Plt Count MPV Neut % (Auto) Lymph % (Auto) [place] % (Auto) Eos % (Auto) Baso % (Auto) Absolute Neuts (auto) Absolute Lymphs (auto) Absolute Monos (auto) Absolute Eos (auto) Absolute Basos (auto) Absolute Nucleated RBC Immature Gran % Neutrophils % Band Neutrophils % Lymphocytes % Monocytes % Metamyelocytes % Myelocytes % Nucleated RBC % Nucleated RBCs/100 WBC Normal RBC Morphology APTT 70.6 H Sodium 150 H Potassium 4.8 Chloride 107 Carbon Dioxide 40 H Anion Gap 3 BUN 49 H Creatinine 1.10 H Est GFR ( Amer) 60.9 Est GFR (Non-Af Amer) 50.3 BUN/Creatinine Ratio 44.5 H Glucose 203 H POC Glucose (mg/dL) Calcium 8.4 L Total Bilirubin 0.20 AST 15 ALT 22 Alkaline Phosphatase 89 Total Protein 5.9 L Albumin 2.4 L Globulin 3.5 Albumin/Globulin Ratio 0.7 L Nutrition: Bing TF Impression: Severe Acute Hypoxic Respiratory Failure secondary to pseudomonal pneumonia Plan: Severe Acute Hypoxic Respiratory Failure - secondary to pseudomonal pneumonia. Small air leak on chest tube. minimal serosang output. Stable vent settings with slow rise in CO2 by Et and serum HCO3. Will increase MV a bit but keep pH where it is. Just at the cusp of adequate oxygenation all week. No options. Pseudomonal Pneumonia - Day #4 Meropenem and Day #3 Levaquin. WBC the lowest it has been in 9 days. Fevers low grade at 38. Getting ahead of the bug is the sine quo non before anything else good can even begin to happen. We may be getting there. JADEN - Cr up in the last 24H with positive balance only 450cc. Will try to keep I =O but a low BP plus hypoxia will catch up with her kidneys quickly. MAP remains adequate for now. Continue other supportive care and time. D/W in detail in 2 separate encounters this AM. He voiced understanding and appreciation for the care. Critical Care Time: 45 minutes
[2019-06-17] MEDS ORDERED: Chlorhexidine MOUTHWASH 0.12%* 15 ML UDC ONE (13:43)
[2019-06-17] MEDS: LORazepam VIAL (for drip)* 100 MG in D5W 100 ML BAG* 50 ML IV SCH (16:10)
[2019-06-17] MEDS: Heparin DRIP 25,000 UNITS(*) 25,000 UNITS/500 ML BAG IV SCH (17:46)
[2019-06-17] MEDS: Acetaminophen ADULT LIQ* 650 MG/20.3 ML UDC PO PRN (19:01)
[2019-06-17] MEDS: Norepinephrine 16MCG/ML IVPRE* 4,000 MCG/250 ML BAG IV SCH (21:14)
[2019-06-18] MEDS: Chlorhexidine MOUTHWASH 0.12%* 15 ML UDC SCH ×6 (01:28→19:40)
[2019-06-18] MEDS: Insulin LISPRO* 1 UNITS UNIT SUBCUT SCH ×4 (01:30→18:08)
[2019-06-18] MEDS: Meropenem 1 GM PREMIX(*) 1 GM/50 ML BAG IV SCH ×3 (05:16→22:16)
[2019-06-18] MEDS: fentaNYL INFUSION 50 MCG/ML* 2,500 MCG/50 ML BAG IV SCH (05:23)
[2019-06-18 05:50] LABS: Hematocrit 28 % (35-47); Hemoglobin 8.8 g/dL (12.0-16.0); Mean Corpuscular HGB Conc 31 g/dL (31-36); Mean Corpuscular Hemoglobin 28 pg (27-31); Mean Corpuscular Volume 90 fL (80-97); Mean Platelet Volume 9.1 fL (7.4-10.4); Platelet Count 405 10^3/uL (150-450); Red Blood Count 3.15 10^6 /uL (3.70-4.87); Red Cell Distribution Width 14 % (10-15); White Blood Count 16.4 10^3/uL (3.5-10.8)
[2019-06-18 06:05] LABS: BUN/Creatinine Ratio 46.3 (8-20); Calcium 7.9 mg/dL (8.6-10.3); EGFR African American 62.2 (>60); EGFR Non-African American 51.4 (>60); Potassium 4.7 mmol/L (3.5-5.0)
[2019-06-18 06:42] LABS: Polychromasia 1+
[2019-06-18] MEDS: Dexmedetomidine* 1,000 MCG in NS 0.9% 250 ML* 240 ML IV SCH ×2 (08:18→17:36)
[2019-06-18] MEDS: Famotidine IV* 10 MG/ML 2 ML (20 mg) IV SLOW PU SCH (08:21)
[2019-06-18] MEDS: Levofloxacin 750 MG IVPREMIX(* 750 MG/150 ML BAG IVPB SCH (11:16)
--- NOTE | 2019-06-18 11:19 | PN ---
Date of Service: 06/18/19 Critical Care Services: Clinically stable with improving subcut emphysema Vital Signs: Temp Pulse Resp BP SpO2 FiO2 37.0 C 80 17 106/59 80 100 06/18/19 10:31 06/18/19 10:31 06/18/19 10:00 06/18/19 10:15 06/18/19 10:31 06/17 10:24 Physical Exam: Gen: Vastly improved cranial subcut emphysema HEENT: NCAT, PERRL Lungs: coarse entry Cardiac: S1S2 regular Abdomen: benign Extremities: mild edema Neuro: sedated, spont moves ext Fluid Balance (Past 24 Hours): I= O= Net Intake & Output 06/16/19 06/17/19 06/18/19 06/19/19 06:59 06:59 06:59 06:59 Intake Total 2818.3 2062.7 3487 Output Total 858 1625 1115 240 Balance 1960.3 437.7 2372 -240 Weight 76.4 kg 74.5 kg 78.6 kg Intake: IV Fluids 235.3 310.7 30 Levaquin 150 156 NS (0.9%) 85.3 42.7 30 meropenem 112 IVPB 180 100 365 Levaquin 155 meropenem 180 100 210 Medicated IV 1052 619 603 CC - Dexmedetomidine/ 468 301 294 Precedex heparin 584 318 309 IV Narcotic Infusion 47 52 45 Fentanyl 47 52 45 Oral 0 0 0 Tube Feeding 0529 621 9649 NG Tube Irrigate Amount 60 Output: Chest Tube #1 15 80 Cadena 843 1625 1035 240 Other: Date of Last Bowel 06/16/19 06/17/2019 Movement # Bowel Movements 1 Estimated Stool Amount Small Labs: Laboratory Results - last 24 hr 06/17/19 06/17/19 06/18/19 13:39 17:44 01:27 WBC RBC Hgb Hct MCV MCH MCHC RDW Plt Count MPV Neut % (Auto) Lymph % (Auto) [place] % (Auto) Eos % (Auto) Baso % (Auto) Absolute Neuts (auto) Absolute Lymphs (auto) Absolute Monos (auto) Absolute Eos (auto) Absolute Basos (auto) Absolute Nucleated RBC Immature Gran % Neutrophils % Lymphocytes % Monocytes % Eosinophils % Metamyelocytes % Myelocytes % Nucleated RBC % Normal RBC Morphology Polychromasia APTT Patient Temperature ABG pH ABG pH (Temp Correct) ABG pCO2 ABG pCO2 (Temp Corrct ABG pO2 ABG pO2 (Temp Correct ABG HCO3 ABG O2 Saturation ABG Base Excess Respiration Rate Ventilator Type Vent Mode FiO2 Inspiratory Time PEEP Pressure Support Pressure Control EPAP IPAP BiPAP Sodium Potassium Chloride Carbon Dioxide Anion Gap BUN Creatinine Est GFR ( Amer) Est GFR (Non-Af Amer) BUN/Creatinine Ratio Glucose POC Glucose (mg/dL) 178 H 161 H 220 H Calcium 06/18/19 06/18/19 06/18/19 05:33 05:33 05:33 WBC 16.4 H RBC 3.15 L Hgb 8.8 L Hct 28 L MCV 90 MCH 28 MCHC 31 RDW 14 Plt Count 405 MPV 9.1 Neut % (Auto) Not Reportable Lymph % (Auto) Not Reportable [place] % (Auto) Not Reportable Eos % (Auto) Not Reportable Baso % (Auto) Not Reportable Absolute Neuts (auto) Not Reportable Absolute Lymphs (auto) Not Reportable Absolute Monos (auto) Not Reportable Absolute Eos (auto) Not Reportable Absolute Basos (auto) Not Reportable Absolute Nucleated RBC Not Reportable Immature Gran % 5.0 Neutrophils % 87.0 Lymphocytes % 2.0 Monocytes % 5.0 Eosinophils % 1.0 Metamyelocytes % 1.0 Myelocytes % 4.0 H Nucleated RBC % Not Reportable Normal RBC Morphology Not Reportable Polychromasia 1+ APTT 74.2 H Patient Temperature ABG pH ABG pH (Temp Correct) ABG pCO2 ABG pCO2 (Temp Corrct ABG pO2 ABG pO2 (Temp Correct ABG HCO3 ABG O2 Saturation ABG Base Excess Respiration Rate Ventilator Type Vent Mode FiO2 Inspiratory Time PEEP Pressure Support Pressure Control EPAP IPAP BiPAP Sodium 152 H Potassium 4.7 Chloride 109 Carbon Dioxide 38 H Anion Gap 5 BUN 50 H Creatinine 1.08 H Est GFR ( Amer) 62.2 Est GFR (Non-Af Amer) 51.4 BUN/Creatinine Ratio 46.3 H Glucose 190 H POC Glucose (mg/dL) Calcium 7.9 L 06/18/19 10:22 WBC RBC Hgb Hct MCV MCH MCHC RDW Plt Count MPV Neut % (Auto) Lymph % (Auto) [place] % (Auto) Eos % (Auto) Baso % (Auto) Absolute Neuts (auto) Absolute Lymphs (auto) Absolute Monos (auto) Absolute Eos (auto) Absolute Basos (auto) Absolute Nucleated RBC Immature Gran % Neutrophils % Lymphocytes % Monocytes % Eosinophils % Metamyelocytes % Myelocytes % Nucleated RBC % Normal RBC Morphology Polychromasia APTT Patient Temperature Not Reportable ABG pH 7.31 L ABG pH (Temp Correct) Not Reportable ABG pCO2 70 H ABG pCO2 (Temp Corrct Not Reportable ABG pO2 59 L* ABG pO2 (Temp Correct Not Reportable ABG HCO3 29.7 ABG O2 Saturation 91.8 L ABG Base Excess 6.4 H Respiration Rate Not Reportable Ventilator Type Not Reportable Vent Mode aprv FiO2 100 Inspiratory Time Not Reportable PEEP Not Reportable Pressure Support Not Reportable Pressure Control Not Reportable EPAP Not Reportable IPAP Not Reportable BiPAP Not Reportable Sodium Potassium Chloride Carbon Dioxide Anion Gap BUN Creatinine Est GFR ( Amer) Est GFR (Non-Af Amer) BUN/Creatinine Ratio Glucose POC Glucose (mg/dL) Calcium Studies: CXR pending Nutrition: Bing TF Impression: Severe Acute Hypoxic Respiratory Failure secondary to pseudomonal pneumonia Plan: Severe Acute Hypoxic Respiratory Failure - secondary to pseudomonal pneumonia. Clinically stable. ABG today when SaO2 was 82% revealed a PO2 of 59 which is more consistent with a SaO2 of ~90% and supports clinical impression that oxygenation is somewhat better than her SaO2 would suggest even if just marginally, its an important margin. Ventilator adjusted to pH of 28 in an effort to decrease transit across her BPF and that has proven successful along with avoidance of turning for the last 18 hrs or so. Will go another day with out turning and hope to get some integrity to the closure of that BPF as she starts to show that healing may be possible. CXR just returned with stable bilateral infiltrates, perhaps less dense on right and stable intra and extrathoracic air to my eye. Pseudomonal Pneumonia - Day #5 of Meropenem / Day #4 of Levaquin. She is finally afebrile and WBC ~ stable at 16 DVT RUE - continue heparin at this time. PTT in target, Hgb and plts OK. JADEN - BUN/Cr stable last 24H in positive balance. Continue supportive care. D/W in detail. Critical Care Time: 60 minutes
[2019-06-18] MEDS: Insulin GLARGINE(*) 1 UNITS UNIT SUBCUT SCH (11:44)
[2019-06-18] MEDS: Heparin DRIP 25,000 UNITS(*) 25,000 UNITS/500 ML BAG IV SCH (12:28)
[2019-06-18] MEDS ORDERED: fentaNYL INFUSION 50 MCG/ML* 2,500 MCG/50 ML BAG IV SCH (17:00)
[2019-06-18] MEDS: LORazepam VIAL (for drip)* 100 MG in D5W 100 ML BAG* 50 ML IV SCH (18:04)
[2019-06-19] MEDS: Acetaminophen ADULT LIQ* 650 MG/20.3 ML UDC PO PRN ×4 (00:12→20:21)
[2019-06-19] MEDS: Insulin LISPRO* 1 UNITS UNIT SUBCUT SCH ×4 (00:12→18:09)
[2019-06-19] MEDS: Chlorhexidine MOUTHWASH 0.12%* 15 ML UDC SCH ×6 (00:12→20:21)
[2019-06-19] MEDS: Norepinephrine 16MCG/ML IVPRE* 4,000 MCG/250 ML BAG IV SCH ×2 (02:51→15:55)
[2019-06-19] MEDS: Dexmedetomidine* 1,000 MCG in NS 0.9% 250 ML* 240 ML IV SCH ×3 (03:50→21:18)
[2019-06-19 05:29] LABS: Hematocrit 28 % (35-47); Hemoglobin 9.1 g/dL (12.0-16.0); Mean Corpuscular HGB Conc 32 g/dL (31-36); Mean Corpuscular Hemoglobin 29 pg (27-31); Mean Corpuscular Volume 90 fL (80-97); Mean Platelet Volume 9.1 fL (7.4-10.4); Platelet Count 545 10^3/uL (150-450); Red Blood Count 3.13 10^6 /uL (3.70-4.87); Red Cell Distribution Width 14 % (10-15); White Blood Count 25.7 10^3/uL (3.5-10.8)
[2019-06-19 05:39] LABS: Albumin 2.5 g/dL (3.2-5.2); Calcium 8.2 mg/dL (8.6-10.3); Total Bilirubin 0.2 mg/dL (0.2-1.0)
[2019-06-19 05:45] LABS: Albumin/Globulin Ratio 0.8 (1-3); BUN/Creatinine Ratio 42.8 (8-20); EGFR African American 46.9 (>60); EGFR Non-African American 38.7 (>60); Globulin 3.2 g/dL (2-4); Total Protein 5.7 g/dL (6.4-8.9)
[2019-06-19 05:50] LABS: Polychromasia 1+
[2019-06-19 05:51] LABS: ABS Basophils 0.2 10^3/ul (0-0.2); ABS Eosinophils 0.2 10^3/ul (0-0.6); ABS Lymphocytes 1.7 10^3/ul (1.0-4.8); ABS Monocytes 1.3 10^3/ul (0-0.8); ABS Neutrophils 22.2 10^3/ul (1.5-7.7); ABS Nucleated RBC 0.1 10^3/ul; Eosinophil % 0.8 %; Lymphocyte % 6.6 %; Nucleated Red Blood Cells % 0.2
[2019-06-19] MEDS: Meropenem 1 GM PREMIX(*) 1 GM/50 ML BAG IV SCH ×3 (06:04→21:18)
--- NOTE | 2019-06-19 06:54 | PN ---
Hospitalist Progress Note Date of Service: 06/19/19 Cross Cover Overnight Interim Hx: Pt required low doses of Levophed gtt (5) overnight to maintain MAP of 65 AM labs show HyperK, HyperNA, added K binder x 1 dose, consider adding back free water as day team feels appropriate Sig elevation in WBC, appropriately double covered for pseudomonas with joelle for both FQ and francisco javier No other acute overnight events
[2019-06-19] MEDS ORDERED: Patiromer POWDER* 8.4 GM PAK PO ONE (07:00)
[2019-06-19] MEDS: Heparin DRIP 25,000 UNITS(*) 25,000 UNITS/500 ML BAG IV SCH (07:33)
[2019-06-19] MEDS: Famotidine IV* 10 MG/ML 2 ML (20 mg) IV SLOW PU SCH (08:33)
[2019-06-19] MEDS: fentaNYL INFUSION 50 MCG/ML* 2,500 MCG/50 ML BAG IV SCH (08:52)
[2019-06-19] MEDS: Levofloxacin 750 MG IVPREMIX(* 750 MG/150 ML BAG IVPB SCH (09:37)
--- NOTE | 2019-06-19 10:41 | PN ---
Date of Service: 06/19/19 - [facility] note Critical Care Services: Pt seen and examined at bedside. Overnight events noted. Pt with Tmax of 101 last night, also with bump in WBC. Pt requiring Levophed. HR stable this morning. O2 sat in low 80`s. Electrolyte abnormalities- high sodium and potassium, received [id number]. Creatinine bump also noted. Sedated with Ativan, precedex and Fenatanyl. Active Medications Generic Name Dose Route Start Last Admin Trade Name Freq PRN Reason Stop Dose Admin Acetaminophen 650 mg 06/14/19 14:23 06/19/19 07:40 Tylenol Adult Liq* PO 650 mg Q4H PRN Administration MILD PAIN or TEMP > 100.4 Albuterol 2 puff 06/07/19 19:31 06/09/19 08:01 Ventolin Hfa Inhaler* INH 2 puff QID PRN Administration SHORTNESS OF BREATH Chlorhexidine Gluconate 15 ml 06/10/19 16:00 06/19/19 07:33 Peridex Mouth Wash 0.12%* .SEE ORDER 15 ml Q4H LEYLA Administration Dextrose 12.5 gm 06/14/19 12:30 D50w Syringe 50 Ml* IV PUSH .FOR FS < 60 - SS PRN FS < 60 Famotidine 20 mg 06/11/19 09:00 06/19/19 08:33 Pepcid Iv* IV SLOW PU 20 mg DAILY LEYLA Administration Heparin Sodium (Porcine) 1 - 3 ml 06/10/19 18:00 06/19/19 05:23 Heparin Flush Picc/Ml/Cvc(*) FLUSH Not Given 0600,1800 [facility] Protocol Heparin Sodium (Porcine) 0 units 06/14/19 12:00 06/14/19 23:57 Heparin Vial(*) IV 5,350 units .FOR HEPARIN BOLUSES LEYLA Administration Heparin Sodium/Dextrose 25,000 units in 500 mls @ 0 mls/hr 06/14/19 11:45 07/04 07:33 Heparin Drip 25,000 Units(*) IV 25 mls/hr PER RATE LEYLA Administration Protocol Per Protocol Meropenem 1 gm in 50 mls @ 100 mls/hr 06/14/19 14:00 06/19/19 06:04 Merrem 1 Gm Premix(*) IV 100 mls/hr Q8H LEYLA Administration Protocol Levofloxacin/Dextrose 750 mg in 150 mls @ 100 mls/hr 06/15/19 10:00 06/19/19 09:37 Levaquin 750 Mg Ivpremix(*) IVPB 100 mls/hr Q24H LEYLA Administration Protocol Norepinephrine Bitartrate 4,000 mcg in 250 mls @ 18.75 mls/hr 06/17/19 21:00 06/19/19 02:51 Levophed 16 Mcg/Ml Premix* IV 18.75 mls/hr .PER PROTOCOL LEYLA Administration Protocol 5 MCG/MIN Dexmedetomidine HCl 1,000 mcg/ 250 mls @ 5.89 mls/hr 06/18/19 14:00 06/19/19 03:50 Sodium Chloride IV 26.6 mls/hr .PER PROTOCOL LEYLA Administration Protocol 0.3 MCG/KG/HR Lorazepam 100 mg/ Dextrose 100 mls @ 6 mls/hr 06/18/19 17:47 IV .PER PROTOCOL LEYLA Protocol 6 MG/HR Fentanyl Citrate 2,500 mcg in 50 mls @ 0.25 mls/hr 06/18/19 17:48 06/19/19 08 :52 Fentanyl Infusion Bag 50 Mcg/Ml 50 Ml IV 2.2 mls/hr .PER PROTOCOL LEYLA Administration Protocol 12.5 MCG/HR Insulin Glargine 25 units 06/16/19 10:36 06/18/19 11:44 Lantus(*) SUBCUT 25 units Q24H LEYLA Administration Insulin Human Lispro 0 units 06/14/19 18:00 06/19/19 06:03 Humalog* SUBCUT 6 units FS Q6 ICU LEYLA Administration Protocol Lorazepam 2 mg 06/14/19 19:40 Ativan Inj* IV PUSH Q1H PRN ANXIETY OR AGITATION Miscellaneous 1 ea 06/14/19 14:00 Ativan Pyxis Bruno N/A .PYXIS BRUNO PRN PER PROTOCOL Vital Signs: Temp Pulse Resp BP SpO2 FiO2 100.2 F 87 17 90/54 81 100 06/19/19 09:45 06/19/19 09:45 06/19/19 08:52 06/19/19 09:45 06/19/19 09:45 06/18 08:00 Physical Exam: Gen: Pt is sedated, subcutaneous emphysema present in face, neck and ant chest HEENT: ETT+, pupils reactive Lungs: Clear to auscultation b/l Cardiac: S1, S2+ Abdomen: Benign Extremities: Edema+ Neuro: Moves extremities spontaneously Fluid Balance (Past 24 Hours): I= 4352 O=897 Net 3455 Intake & Output 06/17/19 06/18/19 06/19/19 06/20/19 06:59 06:59 06:59 06:59 Intake Total 2062.7 3487 4352.9 365 Output Total 1625 1115 897 65 Balance 437.7 2372 3455.9 300 Weight 164 lb 3.91 oz 173 lb 4.533 oz 172 lb 13.478 oz Intake: IV Fluids 310.7 30 238 14 Levaquin 156 120 NS (0.9%) 42.7 30 meropenem 112 118 14 IVPB 100 365 460 62 Levaquin 155 274 meropenem 100 210 186 62 Medicated IV 574 272 2127.9 CC - Dexmedetomidine/ 301 294 948 Precedex CC - Norepinephrine/ 58.9 Levophed heparin 318 309 IV Narcotic Infusion 52 45 165 59 Ativan 165 Fentanyl 52 45 59 Heparin 734 Oral 0 0 Tube Feeding 921 2444 1749 Tube Feeding Flush Amount 230 NG Tube Irrigate Amount 60 Output: Chest Tube #1 80 10 Urine 0 Cadena 1625 1035 887 65 Tube Feeding Residual 0 Amount Wasted Other: Date of Last Bowel 06/16/19 06/17/2019 Movement # Bowel Movements 1 Estimated Stool Amount Small Labs: Laboratory Results - last 24 hr 06/18/19 06/18/19 06/18/19 10:22 11:31 17:36 WBC RBC Hgb Hct MCV MCH MCHC RDW Plt Count MPV Neut % (Auto) Lymph % (Auto) [place] % (Auto) Eos % (Auto) Baso % (Auto) Absolute Neuts (auto) Absolute Lymphs (auto) Absolute Monos (auto) Absolute Eos (auto) Absolute Basos (auto) Absolute Nucleated RBC Immature Gran % Neutrophils % Band Neutrophils % Lymphocytes % Reactive Lymphs % Monocytes % Metamyelocytes % Myelocytes % Nucleated RBC % Toxic Granulation Normal RBC Morphology Polychromasia APTT Patient Temperature Not Reportable ABG pH 7.31 L ABG pH (Temp Correct) Not Reportable ABG pCO2 70 H ABG pCO2 (Temp Corrct Not Reportable ABG pO2 59 L* ABG pO2 (Temp Correct Not Reportable ABG HCO3 29.7 ABG O2 Saturation 91.8 L ABG Base Excess 6.4 H Respiration Rate Not Reportable Ventilator Type Not Reportable Vent Mode aprv FiO2 100 Inspiratory Time Not Reportable PEEP Not Reportable Pressure Support Not Reportable Pressure Control Not Reportable EPAP Not Reportable IPAP Not Reportable BiPAP Not Reportable Sodium Potassium Chloride Carbon Dioxide Anion Gap BUN Creatinine Est GFR ( Amer) Est GFR (Non-Af Amer) BUN/Creatinine Ratio Glucose POC Glucose (mg/dL) 175 H 199 H Calcium Total Bilirubin AST ALT Alkaline Phosphatase Total Protein Albumin Globulin Albumin/Globulin Ratio 06/19/19 06/19/19 06/19/19 00:09 05:18 05:18 WBC 25.7 H RBC 3.13 L Hgb 9.1 L Hct 28 L MCV 90 MCH 29 MCHC 32 RDW 14 Plt Count 545 H D MPV 9.1 Neut % (Auto) 86.5 Lymph % (Auto) 6.6 [place] % (Auto) 5.2 Eos % (Auto) 0.8 Baso % (Auto) 0.9 Absolute Neuts (auto) 22.2 H Absolute Lymphs (auto) 1.7 Absolute Monos (auto) 1.3 H Absolute Eos (auto) 0.2 Absolute Basos (auto) 0.2 Absolute Nucleated RBC 0.1 Immature Gran % 8.0 Neutrophils % 80.0 Band Neutrophils % 2.0 Lymphocytes % 8.0 Reactive Lymphs % 1.0 Monocytes % 3.0 Metamyelocytes % 2.0 Myelocytes % 4.0 H Nucleated RBC % 0.2 Toxic Granulation 1+ Normal RBC Morphology Not Reportable Polychromasia 1+ APTT 81.3 H Patient Temperature ABG pH ABG pH (Temp Correct) ABG pCO2 ABG pCO2 (Temp Corrct ABG pO2 ABG pO2 (Temp Correct ABG HCO3 ABG O2 Saturation ABG Base Excess Respiration Rate Ventilator Type Vent Mode FiO2 Inspiratory Time PEEP Pressure Support Pressure Control EPAP IPAP BiPAP Sodium Potassium Chloride Carbon Dioxide Anion Gap BUN Creatinine Est GFR ( Amer) Est GFR (Non-Af Amer) BUN/Creatinine Ratio Glucose POC Glucose (mg/dL) 206 H Calcium Total Bilirubin AST ALT Alkaline Phosphatase Total Protein Albumin Globulin Albumin/Globulin Ratio 06/19/19 05:18 WBC RBC Hgb Hct MCV MCH MCHC RDW Plt Count MPV Neut % (Auto) Lymph % (Auto) [place] % (Auto) Eos % (Auto) Baso % (Auto) Absolute Neuts (auto) Absolute Lymphs (auto) Absolute Monos (auto) Absolute Eos (auto) Absolute Basos (auto) Absolute Nucleated RBC Immature Gran % Neutrophils % Band Neutrophils % Lymphocytes % Reactive Lymphs % Monocytes % Metamyelocytes % Myelocytes % Nucleated RBC % Toxic Granulation Normal RBC Morphology Polychromasia APTT Patient Temperature ABG pH ABG pH (Temp Correct) ABG pCO2 ABG pCO2 (Temp Corrct ABG pO2 ABG pO2 (Temp Correct ABG HCO3 ABG O2 Saturation ABG Base Excess Respiration Rate Ventilator Type Vent Mode FiO2 Inspiratory Time PEEP Pressure Support Pressure Control EPAP IPAP BiPAP Sodium 147 H Potassium 6.0 H Chloride 107 Carbon Dioxide 33 H Anion Gap 7 BUN 59 H Creatinine 1.38 H Est GFR ( Amer) 46.9 Est GFR (Non-Af Amer) 38.7 BUN/Creatinine Ratio 42.8 H Glucose 209 H POC Glucose (mg/dL) Calcium 8.2 L Total Bilirubin 0.20 AST 15 ALT 17 Alkaline Phosphatase 87 Total Protein 5.7 L Albumin 2.5 L Globulin 3.2 Albumin/Globulin Ratio 0.8 L Studies: CXR 06/19/19 pending Nutrition: Tube feeds Impression: 64 y o f with h/o HTN, dyslipidemia, asthma a/w fever, cough, SOB and was admitted for CAP. Pt deteriorated and required intubation on 06/10/19. Pt was found to have pseudomonal PNA. COVID testing was negative. Pt subsequently was noted to have peumomediastinum and Sq air. Pt was also noted to be with significant hypoxic resp failure requiring high FiO2 with inability to wean. Pt had chest tube inserted 06/13 for worsening pneumomediastinum and stable Lt PTX. Pt on double pseudomonal coverage with no signficant change in resp status. 1. Severe hypoxic resp failure 2/2 pseudomonal PNA 2. Necrotizing pseudomonal PNA 3. ARDS 4. Pneumothorax/Pneumomediastinum 5. Renal failure 6. Hypotension 7. Hyperkalemia 8. Hypernatremia 9. Leucocytosis 10. Anemia Plan: 1. Neuro: Pt sedated with Ativan, Precedex, also on Fentanyl. RASS-3. Vent bundle ordered. Keep HOB at 30 degrees. Not ready for sedation vacation 2. Resp: Severe hypoxic resp failure/ARDS and Pseudomonal PNA, PTX, pneumomediastinum, sq emphesema. Pt on APRV with 100% FiO2 with O2 sat 80%. Will obtain ABG. CXR /- b/l infiltrates. Will rpt CXR. No air leak from chest tube. Pt with no change in resp status in past 24 hrs. Pulm toilet. c/w APRV at current settings. Keep sedation to facilitate syncrony. 3. CVS: Not tachycardic today. Troponins normal. On low dose Levophed. c/w supportive care 4. ID: Necrotizing pseudomonal PNA on double coverage with Meropenem day#6 and Levaquin day#5. Low grade fevers, WBC bump this am. Tylenol prn and cold blanket. Sputum cx with Pseudomonas aeuregnosa, bl cx negative. Will not change abx. Monitor closely 5. Renal: JADEN, slightly worse today. Will rpt. Will adjust abx to Cr Cl. Electrolyte abnormalities, adjustments being made to volume status. Hyperkalemia - received K- binder. Will rpt labs this afternoon. Positive fluid balance due to IV drips, will hold off on Lasix and would concentrate drips if possible 6. Haem: RUE DVT on Heparin, PTT at goal. Leucocytosis, anemia 7. GI: Tube feeds, will increase free water through OGT. Flexiseal 8. Musculoskletal: Pt is not being moved due to severe hypoxia and risk for desaturation. Pt with fecal soiling and will need to be cleaned. 9. Psychosocial: at bedside, had lengthy discussion, regarding prognosis and plan of care. He was explained need for cleaning and turning and that it might result in worsening hypoxia and . He is emotional and with normal grief Code status DNR DVT px: Heparin Critical Care Time: 30 min
[2019-06-19 11:13] LABS: Hematocrit 27 % (35-47); Hemoglobin 8.6 g/dL (12.0-16.0); Mean Corpuscular HGB Conc 32 g/dL (31-36); Mean Corpuscular Hemoglobin 28 pg (27-31); Mean Corpuscular Volume 90 fL (80-97); Mean Platelet Volume 9.1 fL (7.4-10.4); Platelet Count 454 10^3/uL (150-450); Red Blood Count 3.04 10^6 /uL (3.70-4.87); Red Cell Distribution Width 14 % (10-15); White Blood Count 22.3 10^3/uL (3.5-10.8)
[2019-06-19 11:33] LABS: BUN/Creatinine Ratio 43.9 (8-20); Calcium 8.1 mg/dL (8.6-10.3); EGFR African American 46.5 (>60); EGFR Non-African American 38.4 (>60)
[2019-06-19 11:35] LABS: Potassium 5.8 mmol/L (3.5-5.0)
[2019-06-19] MEDS: Insulin GLARGINE(*) 1 UNITS UNIT SUBCUT SCH (12:03)
[2019-06-19] MEDS: LORazepam VIAL (for drip)* 100 MG in D5W 100 ML BAG* 50 ML IV SCH (12:22)
[2019-06-20] MEDS: Chlorhexidine MOUTHWASH 0.12%* 15 ML UDC SCH ×4 (00:07→12:21)
[2019-06-20] MEDS: Insulin LISPRO* 1 UNITS UNIT SUBCUT SCH ×3 (00:12→12:21)
[2019-06-20] MEDS: Heparin DRIP 25,000 UNITS(*) 25,000 UNITS/500 ML BAG IV SCH (03:05)
[2019-06-20 05:31] LABS: Hematocrit 27 % (35-47); Hemoglobin 8.5 g/dL (12.0-16.0); Mean Corpuscular HGB Conc 32 g/dL (31-36); Mean Corpuscular Hemoglobin 28 pg (27-31); Mean Corpuscular Volume 89 fL (80-97); Mean Platelet Volume 8.8 fL (7.4-10.4); Platelet Count 513 10^3/uL (150-450); Red Blood Count 2.99 10^6 /uL (3.70-4.87); Red Cell Distribution Width 14 % (10-15); White Blood Count 26.3 10^3/uL (3.5-10.8)
[2019-06-20] MEDS: Meropenem 1 GM PREMIX(*) 1 GM/50 ML BAG IV SCH (05:48)
[2019-06-20 05:53] LABS: Albumin 2.4 g/dL (3.2-5.2); Albumin/Globulin Ratio 0.8 (1-3); BUN/Creatinine Ratio 45.2 (8-20); Calcium 8.3 mg/dL (8.6-10.3); EGFR African American 48.1 (>60); EGFR Non-African American 39.7 (>60); Globulin 3.1 g/dL (2-4); Total Bilirubin 0.2 mg/dL (0.2-1.0); Total Protein 5.5 g/dL (6.4-8.9)
[2019-06-20 05:54] LABS: Potassium 5.5 mmol/L (3.5-5.0)
[2019-06-20 06:12] LABS: Polychromasia 1+
[2019-06-20 06:14] LABS: ABS Basophils 0.1 10^3/ul (0-0.2); ABS Eosinophils 0.3 10^3/ul (0-0.6); ABS Monocytes 1.3 10^3/ul (0-0.8); ABS Neutrophils 22.6 10^3/ul (1.5-7.7); Eosinophil % 1.2 %; Lymphocyte % 7.5 %
[2019-06-20] MEDS: fentaNYL INFUSION 50 MCG/ML* 2,500 MCG/50 ML BAG IV SCH (06:33)
[2019-06-20] MEDS: LORazepam VIAL (for drip)* 100 MG in D5W 100 ML BAG* 50 ML IV SCH (06:40)
[2019-06-20] MEDS: Famotidine IV* 10 MG/ML 2 ML (20 mg) IV SLOW PU SCH (07:26)
[2019-06-20] MEDS: Dexmedetomidine* 1,000 MCG in NS 0.9% 250 ML* 240 ML IV SCH (08:26)
[2019-06-20] MEDS: Insulin GLARGINE(*) 1 UNITS UNIT SUBCUT SCH (12:21)
[2019-06-20] MEDS ORDERED: Patiromer POWDER* 8.4 GM PAK PO ONE (12:30)
[2019-06-20 15:24] VITALS: BP 107/63
--- NOTE | 2019-06-20 16:43 | PN ---
Progress Note - Progress Note Date of Service: 06/20/19 - ICU progress note Note: Pt seen and examined at bedside multiple times through out the day. Was called to bedside by RN after 2pm for falling tidal volumes and increased ETCO2 and tachycardia. Pt with absent breath sounds on left side with no air leak through ETT. Subcutaneous emphysema was worsening. Pt`s was informed of change in status and concern with deterioration. Pt `s arrived at bedside and was updated on pts condition. Poor lung compliance and worsening barotrauma from stiff lungs was discussed. Pt was on 100% FiO2 with APRV P high of 32. She was able to generate decent tidal volumes until that time. Pt`s decided to with draw care. He called pts sister who was on phone from [place] and they both were grieving. Pt was terminally extubated as per husbands wishes. Girard was at bedside. Pt at 3:19 pm. Please refer to discharge summary by Leatha Long for further details who was present with me and participated in pt care.
[2019-06-20] MEDS ORDERED: Meropenem 1 GM PREMIX(*) 1 GM/50 ML BAG IV SCH (18:00)
--- NOTE | 2019-06-20 19:34 | DS ---
HOSPITAL MEDICINE DISCHARGE / SUMMARY: DATE OF ADMISSION: 06/07/19 DATE OF : 06/20/19 ATTENDING PHYSICIAN: Dr. Stephenson * (dictated provided by Leatha Long NP). PRIMARY CARE PHYSICIAN: Dr. Lizzeth Conn. CAUSE OF : Pneumonia and acute hypoxic respiratory failure. SECONDARY DIAGNOSES: 1. Hypertension. 2. Hyperlipidemia. 3. Asthma. HOSPITAL COURSE: Ms. Camargo is a 64-year-old female with past medical history of hypertension, hyperlipidemia, and asthma who presented to our hospital on with concern for shortness of breath, cough, and fever. Please see dictated H and P from Myra Barnes NP, for complete details. The patient stated at that time that she had been diagnosed with pneumonia on 05/25/19 and treated with azithromycin. The patient states she felt slightly better after that. Several days later, she presented running a low-grade fever, feeling fatigued, and having increased shortness of breath. The patient was tested for COVID-19 on 06/01/19, and at that time, the test was negative. The patient had continuing progressive shortness of breath and therefore presented to the emergency room for evaluation. In the emergency room, the patient had a chest x- ray which showed worsening patchy bilateral airspace opacification. She had no leukocytosis. Her electrolytes were essentially normal. Her CRP was 95.97. She was not febrile initially and was requiring 4 L nasal cannula. Ms. Camargo was admitted to the medical floor. A repeat COVID-19 swab was sent and it was also negative. Urine legionella and Strep pneumo antigens were negative. On the following day, 06/08/19, the patient required transfer to the intensive care unit for increasing oxygen requirements up to 10 L via OxyMask. The patient was stabilized briefly with Vapotherm, but ultimately required intubation on 06/10/19 for worsening hypoxemia. Ms. Camargo has continued to do poorly since 06/10/19 despite maximal support on the ventilator, heavy sedation, and intermittent blood pressure support. She remained hypoxic with an O2 saturation less than 90%. She had a chest x-ray on 06/11/19 that showed new supraclavicular and neck subcutaneous emphysema and suggestion of a potential pneumomediastinum. She continued to have evidence of subcutaneous edema that was quite severe. She had suggestion of new pneumothoraces bilaterally and ultimately was able to have a chest tube placed on 06/14/19. Despite all these efforts, Ms. Camargo continued to deteriorate. Today, she had a likely sudden spontaneous pneumothorax with decreased tidal volumes on the ventilator, increased end-tidal CO2, and tachycardia. Ms. Camargo's , Thom, has been at her bedside this week and he was called back to the hospital this afternoon when she had a sudden change. He agreed that any further efforts to prolong her life were futile and asked for terminal extubation. Ms. Camargo peacefully several minutes after she was extubated with her at the bedside. TIME SPENT: Approximately 60 minutes was spent in the care of Ms. Camargo today with more than half time spent with her and her at the bedside reviewing the events. LEATHA LONG NP [id number]/[facility] #: [id number] ESTEBAN
[2019-06-21] MEDS ORDERED: Levofloxacin 750 MG IVPREMIX(* 750 MG/150 ML BAG IVPB SCH (10:00)
== END 2019-06-20 15:19 | disposition expired | DRG 870 ==
LOC: ED 16:10 → MED 18:37 → ICU 06-08 11:35 → OBSVTOIN 06-08 12:00 → ICU 06-19 14:44
PROVIDERS: ADMIT Internal Medicine; ATTEND Internal Medicine
PROC: 0BH17EZ Insertion of Endotracheal Airway into Trachea, Via Natural or Artificial Opening (ICD-10-PCS; principal; 2019-06-10)
PROC: 5A1955Z Respiratory Ventilation, Greater than 96 Consecutive Hours (ICD-10-PCS; 2019-06-10)
PROC: 02HV33Z Insertion of Infusion Device into Superior Vena Cava, Percutaneous Approach (ICD-10-PCS; 2019-06-10)
PROC: 0W9B30Z Drainage of Left Pleural Cavity with Drainage Device, Percutaneous Approach (ICD-10-PCS; 2019-06-14)
DX: A41.9 Sepsis, unspecified organism (principal); J96.01 Acute respiratory failure with hypoxia; J85.0 Gangrene and necrosis of lung; J15.1 Pneumonia due to Pseudomonas; J96.02 Acute respiratory failure with hypercapnia; J93.83 Other pneumothorax; E87.2 Acidosis; N17.9 Acute kidney failure, unspecified; E87.0 Hyperosmolality and hypernatremia; Z16.29 Resistance to other single specified antibiotic; I95.9 Hypotension, unspecified; J98.2 Interstitial emphysema; E87.5 Hyperkalemia; Z66 Do not resuscitate; I10 Essential (primary) hypertension; D64.9 Anemia, unspecified; B96.5 Pseudomonas (aeruginosa) (mallei) (pseudomallei) as the cause of diseases classified elsewhere; E78.5 Hyperlipidemia, unspecified; J45.909 Unspecified asthma, uncomplicated; Z79.51 Long term (current) use of inhaled steroids; Z79.899 Other long term (current) drug therapy; Z82.49 Family history of ischemic heart disease and other diseases of the circulatory system; Z83.3 Family history of diabetes mellitus; Z82.5 Family history of asthma and other chronic lower respiratory diseases; Z80.6 Family history of leukemia; Z80.49 Family history of malignant neoplasm of other genital organs
CPT/HCPCS: 36415; 36600; 71045; 80048; 80053; 81003; 82330; 82803; 83605; 83735; 83880; 84100; 84484; 85025; 85027; 85060; 85730; 86140; 87040; 87070; 87077; 87086; 87106; 87186; 87205; 87641; 87899; 93005; 94002; 94003; 94640; 96365; 99285; A9270-GY; C1751; J0330; J0456; J0696; J1644; J1650; J1940; J2060; J2185; J2250; J2543; J2704; J2920; J3010; J3475; U0002